=== PATIENT | female | born 1980 | race Caucasian/White ===

== ENCOUNTER → 2016-09-28 | Outpatient (CLI) | payer OTHER ==
[2016-09-28 07:27] LABS: CH 32.4; HCT 40.3 % (34.0-46.0); HDW 2.31; HGB 13.4 gm/dL (11.4-16.0); MCH 32.8 pg (25.0-35.0); MCHC 33.2 g/dL (31.0-37.0); MCV 98.9 fL (80.0-100.0); Mean Platelet Volume 6.9; RBC 4.08 m/uL (3.80-5.40); RDW 13.4 % (11.5-15.5); WBC 6.9 k/uL (3.8-10.6)
[2016-09-28 07:40] LABS: ALT 38 U/L (9-52); AST 25 U/L (14-36); Alkaline Phosphatase 55 U/L (38-126); Anion Gap 7 mmol/L; Blood Urea Nitrogen 9 mg/dL (7-17); Calcium 9.6 mg/dL (8.4-10.2); Carbon Dioxide 27 mmol/L (22-30); Chloride 109 mmol/L (98-107); Cholesterol 247 mg/dL (<200); Glucose 104 mg/dL (74-99); HDL Cholesterol 68 mg/dL (40-60); Non-African American GFR(MDRD) >60 (>60 ml/min/1.73 sqM); Potassium 5.7 mmol/L (3.5-5.1); Sodium 143 mmol/L (137-145); Total Protein 7.4 g/dL (6.3-8.2); Triglycerides 115 mg/dL (<150)
[2016-09-28 12:10] LABS: Hemoglobin A1C 5.3 % (4.2-6.1)
--- NOTE | 2016-09-28 12:51 | NM ---
EXAMINATION TYPE: NM hepatobiliary w EF DATE OF EXAM: 09/28/2016 9:08 AM COMPARISON: Prior exam 07 May 2015, CT scan 06 July 2015 HISTORY: Abdominal pain TECHNIQUE: After the intravenous administration of 5.1 mCi Tc 99m Mebrofenin hepatobiliary scintigrap hy is performed. Immediate images post injection. FINDINGS: There is satisfactory initial accumulation of tracer by the liver. The gallbladder is visualized wit hin 10 minutes. The small bowel activity is noted within 10 minutes. At one hour 8 ounces of oral e nsure plus is given to mimic CCK and gallbladder ejection fraction is calculated at 80 %. Therefore t here is no scintigraphic evidence of cystic or common bile duct obstruction to suggest acute cholecys titis. IMPRESSION: No cystic duct obstruction. Gallbladder ejection fraction 80%.
== END | disposition home or self-care (01) ==
LOC: RADNMMAIN 06:35
PROVIDERS: ATTEND Internal Medicine
DX: R10.11 Right upper quadrant pain (principal); R10.819 Abdominal tenderness, unspecified site; R11.2 Nausea with vomiting, unspecified; Z00.00 Encounter for general adult medical examination without abnormal findings; K21.0 Gastro-esophageal reflux disease with esophagitis; R73.9 Hyperglycemia, unspecified; E78.2 Mixed hyperlipidemia
CPT/HCPCS: 84439; 80061; 80053; 83036; 84443; 85027; 78226; A9537

== ENCOUNTER 2016-10-17 09:26 | Emergency (ER) | payer OTHER ==
[2016-10-17 09:38] VITALS: RESP 18
[2016-10-17] MEDS ORDERED: SODIUM CHLORIDE 0.9% 1,000 ML IV STA ×2 (09:51→09:56)
[2016-10-17] MEDS ORDERED: HYDROmorphone 1 MG/ML 1 ML SYRINGE IVP STA (09:56)
[2016-10-17] MEDS ORDERED: ONDANSETRON 4 MG/2 ML VIAL IVP STA (09:56)
[2016-10-17 10:05] LABS: Basophils % (A) 0 %; CH 32.1; Eosinophils # (A) 0.1 k/uL (0-0.7); Eosinophils % (A) 1 %; HCT 44.4 % (34.0-46.0); HDW 2.15; HGB 14.4 gm/dL (11.4-16.0); Luc # (Auto) 0.14; Luc % (Auto) 1; Lymphocytes # (A) 2.5 k/uL (1.0-4.8); Lymphocytes % (A) 26 %; MCH 31.7 pg (25.0-35.0); MCHC 32.4 g/dL (31.0-37.0); MCV 97.9 fL (80.0-100.0); Mean Platelet Volume 6.7; Monocytes # (A) 0.3 k/uL (0-1.0); Monocytes % (A) 4 %; Neutrophils # (A) 6.5 k/uL (1.3-7.7); Neutrophils % (A) 68 %; RBC 4.53 m/uL (3.80-5.40); RDW 13.2 % (11.5-15.5); WBC 9.7 k/uL (3.8-10.6); WBC (Perox) 9.41
[2016-10-17 10:17] LABS: ALT 28 U/L (9-52); AST 18 U/L (14-36); Alkaline Phosphatase 64 U/L (38-126); Amylase 68 U/L (30-110); Anion Gap 11 mmol/L; Blood Urea Nitrogen 7 mg/dL (7-17); Calcium 9.9 mg/dL (8.4-10.2); Carbon Dioxide 24 mmol/L (22-30); Chloride 108 mmol/L (98-107); Glucose 110 mg/dL (74-99); Non-African American GFR(MDRD) >60 (>60 ml/min/1.73 sqM); Potassium 4.3 mmol/L (3.5-5.1); Sodium 143 mmol/L (137-145); Total Bilirubin 1.1 mg/dL (0.2-1.3)
--- NOTE | 2016-10-17 10:33 | ED ---
General Adult HPI - General Chief complaint: Abdominal Pain Stated complaint: abd pain Time Seen by Provider: 10/17/16 09:48 Source: patient, RN notes reviewed Mode of arrival: ambulatory Limitations: no limitations - History of Present Illness Initial comments: Patient 36-year-old female who presents emergency room today with a chief complaint of right upper quadrant pain. She does admit to a history of dysfunctional gallbladder. She states that she is scheduled to follow-up with the surgeon but is not until November. She states her last today she's been having increased pain to the right upper quadrant. She states is worse after she ate a tuna sandwich. She states now anything that she eats or drinks seems to increased pain. Patient currently rates pain 8/10 located in the right upper quadrant currently describes it as sharp. She does admit to symptoms of nausea vomiting. Denies any other complaints or associated symptoms at this time. Patient denies any recent fever, chills, shortness of breath, chest pain, numbness or tingling, dysuria or hematuria, constipation or diarrhea, headaches or visual changes, or any other complaints. - Related Data Allergies Allergy/AdvReac Type Severity Reaction Status Date / Time No Known Allergies Allergy Verified 10/17/16 09:37 Review of Systems ROS Statement: Those systems with pertinent positive or pertinent negative responses have been documented in the HPI. ROS Other: All systems not noted in ROS Statement are negative. Past Medical History Past Medical History: No Reported History History of Any Multi-Drug Resistant Organisms: None Reported Past Surgical History: Orthopedic Surgery Additional Past Surgical History / Comment(s): tib fib orif Past Psychological History: No Psychological Hx Reported Smoking Status: Never smoker Past Alcohol Use History: None Reported Past Drug Use History: None Reported General Exam - General Exam Comments Initial Comments: General: The patient is awake and alert, in no distress, and does not appear acutely ill. Eye: Pupils are equal, round and reactive to light, extra-ocular movements are intact. No nystagmus. There is normal conjunctiva bilaterally. No signs of icterus. Ears, nose, mouth and throat: There are moist mucous membranes and no oral lesions. Neck: The neck is supple, there is no tenderness or JVD. Cardiovascular: There is a regular rate and rhythm. No murmur, rub or gallop is appreciated. Respiratory: Lungs are clear to auscultation, respirations are non-labored, breath sounds are equal. No wheezes, stridor, rales, or rhonchi. Gastrointestinal: Normal appearance abdomen. Normal bowel sounds. Abdomen soft on palpation. Patient does have tenderness in the right upper quadrant. Mild tenderness epigastric. No rebound tenderness. No guarding. No CVA tenderness. Musculoskeletal: Normal ROM, no tenderness. Strength 5/5. Sensation intact. Pulses equal bilaterally 2+. Neurological: A&O x 3. CN II-XII intact, There are no obvious motor or sensory deficits. Coordination appears grossly intact. Speech is normal. Skin: Skin is warm and dry and no rashes or lesions are noted. Psychiatric: Cooperative, appropriate mood & affect, normal judgment. Limitations: no limitations Course Vital Signs 10/17/16 09:34 Temperature 97.0 F L Pulse Rate 95 Respiratory 18 Rate Blood Pressure 141/74 O2 Sat by Pulse 100 Oximetry Medical Decision Making - Medical Decision Making Patient's labs been reviewed are unremarkable. Patient's had HIDA scan most recently no gallstones. Patient does admit that she's feeling better here in the emergency room after pain medication. Case was discussed in detail with attending physician Dr. Singh. At this time patient will be discharged home she is advised follow-up with Dr. hernandez office tomorrow. Advised return for any other concerns. - Lab Data Result diagrams: 10/17/16 09:50 10/17/16 09:50 Lab Results 10/17/16 10/17/16 10/17/16 Range/Units 09:50 09:50 11:00 WBC 9.7 (3.8-10.6) k/uL RBC 4.53 (3.80-5.40) m/uL Hgb 14.4 (11.4-16.0) gm/dL Hct 44.4 (34.0-46.0) % MCV 97.9 (80.0-100.0) fL MCH 31.7 (25.0-35.0) pg MCHC 32.4 (31.0-37.0) g/dL RDW 13.2 (11.5-15.5) % Plt Count 387 (150-450) k/uL Neutrophils % 68 % Lymphocytes % 26 % Monocytes % 4 % Eosinophils % 1 % Basophils % 0 % Neutrophils # 6.5 (1.3-7.7) k/uL Lymphocytes # 2.5 (1.0-4.8) k/uL Monocytes # 0.3 (0-1.0) k/uL Eosinophils # 0.1 (0-0.7) k/uL Basophils # 0.0 (0-0.2) k/uL Sodium 143 (137-145) mmol/L Potassium 4.3 (3.5-5.1) mmol/L Chloride 108 H (98-107) mmol/L Carbon Dioxide 24 (22-30) mmol/L Anion Gap 11 mmol/L BUN 7 (7-17) mg/dL Creatinine 0.68 (0.52-1.04) mg/dL Est GFR (MDRD) Af Amer >60 (>60 ml/min/1.73 sqM) Est GFR (MDRD) Non-Af >60 (>60 ml/min/1.73 sqM) Glucose 110 H (74-99) mg/dL Calcium 9.9 (8.4-10.2) mg/dL Total Bilirubin 1.1 (0.2-1.3) mg/dL AST 18 (14-36) U/L ALT 28 (9-52) U/L Alkaline Phosphatase 64 (38-126) U/L Total Protein 8.0 (6.3-8.2) g/dL Albumin 4.8 (3.5-5.0) g/dL Amylase 68 (30-110) U/L Lipase 147 (23-300) U/L Urine Color Yellow Urine Appearance Cloudy H (Clear) Urine pH 7.0 (5.0-8.0) Ur Specific Carbon 1.017 (1.001-1.035) Urine Protein Trace H (Negative) Urine Glucose (UA) Negative (Negative) Urine Ketones Negative (Negative) Urine Blood Negative (Negative) Urine Nitrite Negative (Negative) Urine Bilirubin Negative (Negative) Urine Urobilinogen <2.0 (<2.0) mg/dL Ur Leukocyte Esterase Trace H (Negative) Urine WBC 1 (0-5) /hpf Ur Squamous Epith Cells 25 H (0-4) /hpf Urine Mucus Moderate H (None) /hpf Urine HCG, Qual (Not Detectd) 10/17/16 Range/Units 11:00 WBC (3.8-10.6) k/uL RBC (3.80-5.40) m/uL Hgb (11.4-16.0) gm/dL Hct (34.0-46.0) % MCV (80.0-100.0) fL MCH (25.0-35.0) pg MCHC (31.0-37.0) g/dL RDW (11.5-15.5) % Plt Count (150-450) k/uL Neutrophils % % Lymphocytes % % Monocytes % % Eosinophils % % Basophils % % Neutrophils # (1.3-7.7) k/uL Lymphocytes # (1.0-4.8) k/uL Monocytes # (0-1.0) k/uL Eosinophils # (0-0.7) k/uL Basophils # (0-0.2) k/uL Sodium (137-145) mmol/L Potassium (3.5-5.1) mmol/L Chloride (98-107) mmol/L Carbon Dioxide (22-30) mmol/L Anion Gap mmol/L BUN (7-17) mg/dL Creatinine (0.52-1.04) mg/dL Est GFR (MDRD) Af Amer (>60 ml/min/1.73 sqM) Est GFR (MDRD) Non-Af (>60 ml/min/1.73 sqM) Glucose (74-99) mg/dL Calcium (8.4-10.2) mg/dL Total Bilirubin (0.2-1.3) mg/dL AST (14-36) U/L ALT (9-52) U/L Alkaline Phosphatase (38-126) U/L Total Protein (6.3-8.2) g/dL Albumin (3.5-5.0) g/dL Amylase (30-110) U/L Lipase (23-300) U/L Urine Color Urine Appearance (Clear) Urine pH (5.0-8.0) Ur Specific Carbon (1.001-1.035) Urine Protein (Negative) Urine Glucose (UA) (Negative) Urine Ketones (Negative) Urine Blood (Negative) Urine Nitrite (Negative) Urine Bilirubin (Negative) Urine Urobilinogen (<2.0) mg/dL Ur Leukocyte Esterase (Negative) Urine WBC (0-5) /hpf Ur Squamous Epith Cells (0-4) /hpf Urine Mucus (None) /hpf Urine HCG, Qual Not Detected (Not Detectd) Disposition Clinical Impression: Abdominal pain Disposition: HOME SELF-CARE Condition: Good Instructions: Abdominal Pain (ED) Additional Instructions: Please follow-up with surgeons office tomorrow as discussed. Please return to emergency room if any symptoms increase or worsen or for any other concerns. Referrals: Daljit Erwin MD [Primary Care Provider] - 1-2 days Tim Serrano MD [Medical Doctor] - 1-2 days Time of Disposition: 11:30
[2016-10-17 11:16] LABS: Appearance,Urine Cloudy (Clear); Bilirubin,Urine Negative (Negative); Glucose,Urine (UA) Negative (Negative); Ketones,Urine Negative (Negative); Leukocyte Esterase,Urine Trace (Negative); Mucus,Urine Moderate /hpf; Nitrite,Urine Negative (Negative); Particle Count 19417; Protein,Urine Trace (Negative); Specific Gravity,Urine 1.017 (1.001-1.035); Squamous Epithelial Cell,Urine 25 /hpf (0-4); UA Billing (MACRO vs. MICRO) MICRO; Urobilinogen,Urine <2.0 mg/dL (<2.0); WBC,Urine 1 /hpf (0-5)
[2016-10-17 11:58] VITALS: BP 120/73; PULSE 89; TEMP 97.3
== END 2016-10-17 11:58 | disposition home or self-care (01) ==
LOC: EC 09:26
DX: R10.11 Right upper quadrant pain (principal); R11.2 Nausea with vomiting, unspecified
CPT/HCPCS: 36415; 80053; 82150; 83690; 85025; 81001; 81025; 99284; 96374; 96375; 96361 ×2; J2405; J1170

== ENCOUNTER 2018-02-05 06:15 | Inpatient (IN) | payer OTHER ==
[2018-02-05] MEDS ORDERED: METHYLERGONOVINE 0.2 MG/ML 1 ML AMP IM PRN (06:46)
[2018-02-05] MEDS ORDERED: LIDOCAINE 0.5% (PF) 5 MG/ML (50 ML SDV) SQ PRN (06:46)
[2018-02-05] MEDS ORDERED: TERBUTALINE 1 MG/ML VIAL SQ PRN (06:46)
[2018-02-05] MEDS ORDERED: OXYTOCIN 10 UNIT/ML 1 ML VIAL IM PRN (06:46)
[2018-02-05] MEDS ORDERED: CARBOPROST TROMETHAMINE 250 MCG/ML 1 ML AMP IM PRN (06:46)
[2018-02-05] MEDS: LACTATED RINGERS 1,000 ML IV SCH ×2 (06:50→23:59)
[2018-02-05 06:56] LABS: Basophils % (A) 0 %; Eosinophils # (A) 0.1 k/uL (0-0.7); Eosinophils % (A) 1 %; HCT 33.9 % (34.0-46.0); HGB 10.6 gm/dL (11.4-16.0); Lymphocytes # (A) 2.4 k/uL (1.0-4.8); Lymphocytes % (A) 18 %; MCH 30.5 pg (25.0-35.0); MCHC 31.3 g/dL (31.0-37.0); MCV 97.4 fL (80.0-100.0); Mean Platelet Volume 7.2; Monocytes # (A) 0.6 k/uL (0-1.0); Monocytes % (A) 5 %; Neutrophils # (A) 10.4 k/uL (1.3-7.7); Neutrophils % (A) 75 %; Platelet Count 436 k/uL (150-450); RBC 3.48 m/uL (3.80-5.40); RDW 14.9 % (11.5-15.5); WBC 13.8 k/uL (3.8-10.6)
[2018-02-05 07:00] VITALS: BMI 29.5
[2018-02-05] MEDS ORDERED: OXYTOCIN 20 UNITS/1000 ML NS 1,000 ML IV SCH ×2 (07:00→22:15)
--- NOTE | 2018-02-05 08:03 | P.HPOB ---
History of Present Illness H&P Date: 02/05/18 Chief Complaint: Induction of Labor 37-year-old presents at 39 weeks and 3 days for induction of labor. Her cervix is 1 cm dilated, 70% effaced, and -2 station. She is candida irregularly. heart tones 130-135 with moderate variability and reactive. Review of Systems All systems: negative Constitutional: Denies chills, Denies fever Eyes: denies blurred vision, denies pain Ears, nose, mouth and throat: Denies headache, Denies sore throat Cardiovascular: Denies chest pain, Denies shortness of breath Respiratory: Denies cough Gastrointestinal: Denies abdominal pain, Denies diarrhea, Denies nausea, Denies vomiting Genitourinary: Denies dysuria, Denies hematuria Musculoskeletal: Denies myalgias Integumentary: Denies pruritus, Denies rash Neurological: Denies numbness, Denies weakness Psychiatric: Denies anxiety, Denies depression Endocrine: Denies fatigue, Denies weight change Past Medical History Past Medical History: No Reported History Additional Past Medical History / Comment(s): Obstetric history: First was a vaginal delivery this is her second and she's had care with me since 14 weeks gestation. A+, abs negative, rubella immune, RPR nonreactive, hepatitis B negative, HIV nonreactive, toxoplasmosis negative, normal anatomy ultrasound, male, normal maternity 21 testing, normal 1 hour glucose tolerance test. NSTs have been reactive, she was recommended to have a echo but did not go for that appointment. GBS negative. History of Any Multi-Drug Resistant Organisms: None Reported Past Surgical History: Orthopedic Surgery Additional Past Surgical History / Comment(s): tib fib orif Past Anesthesia/Blood Transfusion Reactions: No Reported Reaction Past Psychological History: No Psychological Hx Reported Smoking Status: Never smoker Past Alcohol Use History: None Reported Past Drug Use History: None Reported - Past Family History Father Family Medical History: Coronary Artery Disease (CAD), Diabetes Mellitus, Hypertension, Renal Disease Medications and Allergies Home Medications Medication Instructions Recorded Confirmed Type Acetaminophen [Tylenol] 325 mg PO Q4-6H 01/22/18 01/22/18 History Aspirin [Children's Aspirin] 81 mg PO DAILY 01/22/18 01/22/18 History Doxylamine Succinate [Unisom] 25 mg PO HS 01/22/18 01/22/18 History Pnv,Calcium 72/Iron/Folic Acid 1 tab PO DAILY 01/22/18 01/22/18 History [ Plus Tablet] diphenhydrAMINE [Benadryl] 25 mg PO Q8HR PRN 01/22/18 01/22/18 History Allergies Allergy/AdvReac Type Severity Reaction Status Date / Time ibuprofen AdvReac Unknown Verified 02/05/18 06:45 Exam Osteopathic Statement: *. No significant issues noted on an osteopathic structural exam other than those noted in the History and Physical/Consult. Vital Signs Temp Pulse Resp BP Pulse Ox 02/05/18 06:43 96.9 F L 82 16 112/73 99 Intake and Output 02/04/18 02/05/18 02/05/18 22:59 06:59 14:59 Other: Weight 70.76 kg Heart: Regular rate and rhythm Lungs: Clear to auscultation bilaterally Abdomen: Soft, nontender Extremities: Negative Homans sign Results Result Diagrams: 02/05/18 06:40 Abnormal Lab Results - Last 24 Hours (Table) 02/05/18 Range/Units 06:40 WBC 13.8 H (3.8-10.6) k/uL RBC 3.48 L (3.80-5.40) m/uL Hgb 10.6 L (11.4-16.0) gm/dL Hct 33.9 L (34.0-46.0) % Neutrophils # 10.4 H (1.3-7.7) k/uL Assessment and Plan (1) Normal labor Current Visit: Yes Status: Acute Code(s): O80 - ENCOUNTER FOR FULL-TERM UNCOMPLICATED DELIVERY; Z37.9 - OUTCOME OF DELIVERY, UNSPECIFIED SNOMED Code(s ): 55696793 Plan: 1. Induction of labor with amniotomy and Pitocin 2. Anticipate normal vaginal delivery
[2018-02-05] MEDS ORDERED: ROPIVACAINE 100 MG, fentaNYL (PF) 200 MCG in SODIUM CHLORIDE 0.9% 76 ML EPIDURAL ONE (12:55)
[2018-02-05] MEDS ORDERED: ceFAZolin IN SWFI 2 GM/20 ML SYRINGE IVP STA (20:25)
[2018-02-05] MEDS ORDERED: CITRIC ACID-SODIUM CITRATE 15 ML CUP PO ONE (20:26)
[2018-02-05] MEDS ORDERED: MORPHINE SULFATE (PF) 0.3 MG/0.3 ML SYR ONE (20:42)
[2018-02-05] MEDS ORDERED: ACETAMINOPHEN TAB 325 MG TAB PO PRN (22:08)
[2018-02-05] MEDS ORDERED: LANOLIN CREAM 5 GM TUBE TOPICAL PRN (22:08)
[2018-02-05] MEDS ORDERED: IBUPROFEN 600 MG TAB PO PRN (22:08)
[2018-02-05] MEDS ORDERED: ZOLPIDEM 5 MG TAB PO PRN (22:08)
[2018-02-05] MEDS ORDERED: METOCLOPRAMIDE 5 MG/ML 2 ML VIAL IVP PRN (22:08)
[2018-02-05] MEDS ORDERED: diphenhydrAMINE 50 MG/ML 1 ML VIAL IVP PRN ×2 (22:08)
[2018-02-05] MEDS ORDERED: ONDANSETRON 4 MG/2 ML VIAL IVP PRN (22:08)
[2018-02-05] MEDS ORDERED: diphenhydrAMINE 50 MG CAP PO PRN (22:08)
[2018-02-05] MEDS ORDERED: NALOXONE 0.4 MG/ML 1 ML VIAL IV PRN (22:08)
[2018-02-05] MEDS ORDERED: diphenhydrAMINE 25 MG CAP PO PRN (22:08)
--- NOTE | 2018-02-05 22:27 | P.OP ---
Date of Procedure: 02/05/18 Preoperative Diagnosis: 1. at 39 weeks and 3 days 2. Arrest of descent 3. tachycardia Postoperative Diagnosis: 1. at 39 weeks and 3 days 2. Arrest of descent 3. tachycardia 4. head in the LOT position Procedure(s) Performed: Primary low transverse Anesthesia: spinal Surgeon: Cynthia Serrano Volunteer Services Assistant #1: Ravindra Mccurdy Estimated Blood Loss (ml): 500 IV fluids (ml): 1,500 Urine output (ml): 50 Pathology: other (Placenta) Condition: stable Disposition: floor Indications for Procedure: 37-year-old presented at 39 weeks and 3 days for induction of labor. Her cervix was 1 cm dilated, 70% effaced, -2 station. Amniotomy was performed at 7: 46 AM clear fluid noted. Pitocin was started. When she was candida every couple minutes and her cervix was making change she did get an epidural. She made slow cervical change throughout the day and did have some decelerations in the heart rate that did near contractions good return to baseline throughout the day. Her Pitocin was shut off but she was still making some cervical change made it to 8 cm dilated and was uncomfortable did get a bolus on her epidural. She started pushing and pushed for a few hours but didn't make good descent after the first hour. heart tones started to go up into the range of 175-180 with moderate variability. She stopped pushing effectively, informed consent was obtained and section was called. Operative Findings: Viable male infant, Apgars 7, 8, weight 7 lbs. 7 oz. Meconium fluid was seen upon incision of the uterus. Description of Procedure: Patient was taken to the operating room where spinal anesthesia was found be adequate. She was prepped and draped in normal sterile fashion in dorsal supine position with a leftward tilt. Pfannenstiel skin incision was made the scalpel and carried through to the underlying layer of fascia with the scalpel. Fascia was incised in midline and carried bilaterally with the Carmona scissors. The superior aspect of the fascial incision was grasped with Danilo clamps elevated and the underlying rectus muscles dissected off with the Carmona's. Attention was then turned to inferior aspect of same incision which in a similar fashion was grasped tented up and the underlying rectus muscles dissected off with the Carmona's. The rectus muscles were the midline and the peritoneum was identified tented up and entered sharply with the scalpel. The incision was extended superiorly and inferiorly with good visualization of the bladder. The bladder blade was inserted and the vesicouterine peritoneum was incised the Metzenbaums then carried bilaterally and bladder flap created digitally. A low transverse incision was then made on the uterus with the scalpel. This was carried bilaterally and digital manner. Infant's head delivered atraumatically, nose and mouth bulb suctioned, cord clamped and cut, infant handed off to waiting nurses, and the waiting insurance office manager. Apgars 7,8, weight 7 lbs. 7 oz. Placenta delivered manually, intact with three-vessel cord. The uterus is exteriorized and cleared of all clots and debris. At this time the patient became very uncomfortable. The uterine incision was closed with 0 Vicryl in a running locked fashion. Due to the patient's discomfort, anesthesia asked that I place some local anesthetic and the fascial layer. I infiltrated 10 mL of 1% lidocaine in the right aspect of the fascial layer. I then placed a Second layer of the same 0 Vicryl sutures used in imbricating fashion on the uterus to obtain excellent hemostasis. Both ovaries and tubes appeared normal. The uterus was placed back into the abdomen. The patient was very uncomfortable at this time. The fascia was reapproximated using 0 Vicryl in a running fashion. The subcutaneous tissues closed with 3-0 Vicryl running fashion. The skin was closed columba. Patient tolerated the procedure well, sponge and instrument counts were correct times 2 and she was taken to the recovery room in stable condition.
[2018-02-05] MEDS: HYDROmorphone PCA 5 MG/25 ML SYRINGE IV PRN (23:34)
[2018-02-06] MEDS: HYDROmorphone PCA 5 MG/25 ML SYRINGE IV PRN (02:52)
[2018-02-06] MEDS: KETOROLAC 30 MG/ML 1 ML VIAL IVP PRN ×3 (03:52→22:06)
[2018-02-06] MEDS: LACTATED RINGERS 1,000 ML IV SCH ×2 (06:39)
[2018-02-06 07:17] LABS: Basophils % (A) 0 %; Eosinophils # (A) 0.1 k/uL (0-0.7); Eosinophils % (A) 0 %; HCT 29.1 % (34.0-46.0); HGB 9.4 gm/dL (11.4-16.0); Lymphocytes # (A) 1.7 k/uL (1.0-4.8); Lymphocytes % (A) 10 %; MCH 31.2 pg (25.0-35.0); MCHC 32.5 g/dL (31.0-37.0); Mean Platelet Volume 7.4; Monocytes # (A) 0.8 k/uL (0-1.0); Monocytes % (A) 5 %; Neutrophils # (A) 14.8 k/uL (1.3-7.7); Neutrophils % (A) 84 %; Platelet Count 367 k/uL (150-450); RBC 3.03 m/uL (3.80-5.40); RDW 14.8 % (11.5-15.5); WBC 17.6 k/uL (3.8-10.6)
[2018-02-06] MEDS: HYDROcodone/APAP 7.5-325MG 1 EACH TAB PO PRN ×3 (08:39→20:29)
[2018-02-06] MEDS: SENNOSIDES-DOCUSATE SODIUM 1 EACH TAB PO SCH ×2 (08:39→19:50)
[2018-02-06] MEDS: SIMETHICONE 80 MG CHEWABLE PO PRN ×3 (12:32→20:37)
[2018-02-07] MEDS: HYDROcodone/APAP 7.5-325MG 1 EACH TAB PO PRN ×2 (02:35→08:46)
[2018-02-07 08:29] VITALS: BP 132/74; PULSE 76; RESP 16; TEMP 98
== END 2018-02-07 09:57 | disposition home or self-care (01) | DRG 766 ==
LOC: 4FBP 06:15
PROVIDERS: ADMIT Obstetrics & Gynecology; ATTEND Obstetrics & Gynecology
PROC: 3E033VJ Introduction of Other Hormone into Peripheral Vein, Percutaneous Approach (ICD-10-PCS; 2018-02-05)
PROC: 10907ZC Drainage of Amniotic Fluid, Therapeutic from Products of Conception, Via Natural or Artificial Opening (ICD-10-PCS; 2018-02-05)
PROC: 00HU33Z Insertion of Infusion Device into Spinal Canal, Percutaneous Approach (ICD-10-PCS; 2018-02-05)
PROC: 3E0R3BZ Introduction of Anesthetic Agent into Spinal Canal, Percutaneous Approach (ICD-10-PCS; 2018-02-05)
PROC: 10D00Z1 Extraction of Products of Conception, Low, Open Approach (ICD-10-PCS; principal; 2018-02-05 21:00)
DX: O77.0 Labor and delivery complicated by meconium in amniotic fluid (principal); Z37.0 Single live birth; O62.1 Secondary uterine inertia; O76 Abnormality in fetal heart rate and rhythm complicating labor and delivery; Z3A.39 39 weeks gestation of pregnancy; Z79.82 Long term (current) use of aspirin; Z79.899 Other long term (current) drug therapy; Z88.6 Allergy status to analgesic agent; Z82.49 Family history of ischemic heart disease and other diseases of the circulatory system; Z83.3 Family history of diabetes mellitus; Z84.1 Family history of disorders of kidney and ureter
CPT/HCPCS: 85025; 86850; 86900; 86901

== ENCOUNTER → 2018-04-11 | Outpatient (CLI) | payer OTHER ==
[2018-04-11 07:38] LABS: HCT 43.3 % (34.0-46.0); MCHC 32.3 g/dL (31.0-37.0); MCV 95.8 fL (80.0-100.0); Mean Platelet Volume 6.7; Platelet Count 412 k/uL (150-450); RBC 4.52 m/uL (3.80-5.40); RDW 14.5 % (11.5-15.5); WBC 7.9 k/uL (3.8-10.6)
[2018-04-11 12:52] LABS: Albumin 4.5 g/dL (3.80-4.90); Albumin/Globulin Ratio 2.05 (1.20-2.10); Anion Gap 7.8 mmol/L (4.00-12.00); Calcium 9.7 mg/dL (8.7-10.3); Carbon Dioxide 25.2 mmol/L (21.6-31.8); Globulin 2.2 g/dL (2.1-3.7); LDL Cholesterol,Calculated 147.4 mg/dL (0.0-131.0); Potassium 5.1 mmol/L (3.5-5.5); Total Bilirubin 0.4 mg/dL (0.3-1.2); Total Protein 6.7 g/dL (6.2-8.2); VLDL Calculation 50.6 mg/dL (5.00-40.00)
[2018-04-11 13:00] LABS: T4, Free (Free Thyroxine) 1.2 ng/dL (0.80-1.80)
[2018-04-11 14:00] LABS: Hemoglobin A1C 5.9 % (4.0-6.0)
== END | disposition home or self-care (01) ==
LOC: LABWHC1 06:45
PROVIDERS: ATTEND Internal Medicine
DX: Z00.00 Encounter for general adult medical examination without abnormal findings (principal); K21.0 Gastro-esophageal reflux disease with esophagitis; M54.5 Low back pain; E11.9 Type 2 diabetes mellitus without complications; R10.84 Generalized abdominal pain
CPT/HCPCS: 36415; 80053; 80061; 83036; 84439; 84443; 85027

== ENCOUNTER → 2018-06-12 | Outpatient (CLI) | payer OTHER ==
--- NOTE | 2018-06-12 12:11 | US ---
EXAMINATION TYPE: US abdomen complete DATE OF EXAM: 06/12/2018 COMPARISON: CT 2016 CLINICAL HISTORY: R10.84 abdominal pain, R10.11Right upper q, R10.13. Intermittent abdomen pain, elev ated liver enzymes, history of cholecystectomy. EXAM MEASUREMENTS: Liver Length: 15.3 cm Gallbladder Wall: surgically absent CBD: 0.3 cm Spleen: 10.0 cm Right Kidney: 9.6 x 4.6 x 4.6 cm Left Kidney: 10.6 x 5.6 x 4.3 cm Pancreas: visualized portions wnl, limited by overlying midline bowel gas Liver: wnl Gallbladder: surgically absent Evidence for sonographic Akins's sign: yes CBD: visualized portions wnl, limited by overlying bowel gas Spleen: visualized portions wnl, limited by overlying bowel gas Right Kidney: wnl Left Kidney: wnl Upper IVC: wnl Abd Aorta: visualized portions wnl, limited by overlying midline bowel gas The visualized liver is homogenous. The intrahepatic portion of the IVC and visualized abdominal aor ta are within normal limits. Gallbladder is noted surgically absent. Common bile duct is unremarkabl e. The visualized central portions of the pancreas are homogenous. Significant portion of pancreatic head and tail is secured by overlying bowel gas per technologist. The spleen is unremarkable. Kidn eys are symmetric and free of hydronephrosis. No renal lesions are seen. IMPRESSION: Suboptimal study without suspicious focal intrahepatic mass or intrahepatic ductal dilata tion seen. Postcholecystectomy change noted. No suspicious acute findings seen to account for patient 's symptoms of right upper quadrant pain.
== END | disposition home or self-care (01) ==
LOC: RADUSWWP 08:22
PROVIDERS: ATTEND Internal Medicine
DX: R10.13 Epigastric pain (principal); R10.84 Generalized abdominal pain; Z90.49 Acquired absence of other specified parts of digestive tract
CPT/HCPCS: 76700

== ENCOUNTER → 2018-09-10 | Outpatient (CLI) | payer OTHER ==
--- NOTE | 2018-09-10 10:41 | XR ---
Thoracic spine HISTORY: Back pain 3 views of the thoracic spine Thoracic vertebral bodies show preserved height and alignment, bone mineralization. There is multilev el spondylosis. Disc spaces are maintained. Gentle spinal curvature is noted. IMPRESSION: Mild thoracic spondylosis.
--- NOTE | 2018-09-10 10:43 | XR ---
Lumbosacral spine HISTORY: Back pain 5 views of the lumbosacral spine There is no evident spondylolysis or spondylolisthesis. Multilevel spondylosis is present. Disc space s are maintained with some possible mild disc height loss L5-S1. Sclerosis present at the lower poste rior elements of the lumbar spine, lumbosacral junction. Surgical clips are noted in the right upper quadrant. IMPRESSION: Mild degenerative disc disease. Probable facet arthropathy.
[2018-09-10 18:24] LABS: ALT 23 U/L (8-44); AST 22 U/L (13-35); Alkaline Phosphatase 75 U/L (41-126)
== END | disposition home or self-care (01) ==
LOC: LABWHC1 08:19
PROVIDERS: ATTEND Internal Medicine
DX: M54.5 Low back pain (principal); M47.814 Spondylosis without myelopathy or radiculopathy, thoracic region; M51.36 Other intervertebral disc degeneration, lumbar region; M19.90 Unspecified osteoarthritis, unspecified site; R94.5 Abnormal results of liver function studies
CPT/HCPCS: 36415; 72072; 72110; 84075; 84450; 84460

== ENCOUNTER → 2018-12-22 | Outpatient (CLI) | payer OTHER ==
--- NOTE | 2018-12-23 00:20 | MR ---
EXAMINATION TYPE: MR brain wo/w con DATE OF EXAM: 12/22/2018 COMPARISON: CT brain November 14, 2018 HISTORY: Seizure disorder, recent syncopal episode. TECHNIQUE: Multiplanar, multisequence images of the brain and brainstem is performed without and with IV contras t, utilizing 7 mL intravenous Gadavist . FINDINGS: Diffusion weighted images demonstrate no evidence of a recent infarct or other diffusion ab normality. There is no extra-axial fluid collection or significant white matter signal abnormality. The ventricular system and cisternal spaces are normal in size and appearance. The brain volume is age appropriate. T2 coronal weighted images show hippocampal gyral to appear symmetric and felt withi n normal limits. Midline structures demonstrate normal morphology. The craniocervical junction appears within normal limits. Post contrast images demonstrate no abnormal enhancement. The dural venous sinuses appear pa tent. The visualized sinuses are clear and the globes are intact. IMPRESSION: Unremarkable study.
--- NOTE | 2018-12-23 00:24 | MR ---
EXAMINATION TYPE: MR thoracic spine wo con DATE OF EXAM: 12/22/2018 COMPARISON: Thoracic spine x-ray September 10, 2018 HISTORY: back pain per order. DJD and middle back pain in spine with numbness and tingling in toes an d fingers for 4 years per patient. TECHNIQUE: Multiplanar, multisequence imaging of thoracic spine is performed without contrast FINDINGS: Spinal cord shows normal course, caliber, and signal as it courses the thoracic spine. Ashli tebral body heights and alignment are satisfactory. Disc space heights are fairly well-maintained. Ti ny posterior disc herniations minimally effaces the anterior thecal sac T6-T7 through the T8-T9 level as well as slightly larger disc herniations are seen T10-T11 through the T12-L1 levels on sagittal i mages. Posterior disc herniations also noted C3-C4 through the C5-C6 levels on sagittal T2, sequences . Small hemangioma noted posterior to T8 level sagittal image 4. No significant spurring is present. Review of the axial images shows no additional significant spinal canal stenosis or neural foraminal narrowing at any thoracic level. No suspicious incidental finding in the visualized thorax over uppe r abdomen. IMPRESSION: Multilevel small posterior disc herniations minimally effacing the anterior thecal sac in the mid to lower thoracic spine as detailed above.
== END | disposition home or self-care (01) ==
LOC: RADMRIMAIN 12:14
PROVIDERS: ATTEND Psychiatry & Neurology Neurology
DX: M51.24 Other intervertebral disc displacement, thoracic region (principal); G40.909 Epilepsy, unspecified, not intractable, without status epilepticus
CPT/HCPCS: 70553; 72146; A9585

== ENCOUNTER 2019-04-28 07:06 | Emergency (ER) | payer OTHER ==
[2019-04-28 07:17] VITALS: RESP 18; TEMP 97.8
[2019-04-28] MEDS ORDERED: SODIUM CHLORIDE 0.9% 1,000 ML IV STA ×2 (07:23)
[2019-04-28] MEDS ORDERED: ONDANSETRON 4 MG/2 ML VIAL IVP STA (07:23)
--- NOTE | 2019-04-28 07:27 | ED ---
Nausea/Vomiting/Diarrhea HPI - General Chief complaint: Nausea/Vomiting/Diarrhea Stated complaint: Nausea/vomiting Time Seen by Provider: 04/28/19 07:20 Source: patient Mode of arrival: ambulatory Limitations: no limitations - History of Present Illness Initial comments: This a 38-year-old female states her menstrual period last day or so who states he started developing nausea vomiting around midnight. She had multiple episodes of vomiting at least 6 or 7 with some looser soft stool. Mild epigastric discomfort no fevers chills nausea vomiting she has had some rhinorrhea. No other modifying factors no dysuria though she states her urine output has been markedly diminished likely secondary to vomiting. MD complaint: nausea, vomiting - Related Data Home Medications Medication Instructions Recorded Confirmed Kratom 1 - 2 tab PO HS 11/14/18 11/14/18 traMADol HCL [Ultram] 50 - 100 mg PO DAILY 11/14/18 11/14/18 Previous Rx's Medication Instructions Recorded Ondansetron Odt [Zofran Odt] 4 mg PO Q8HR PRN #12 tab 04/28/19 Allergies Allergy/AdvReac Type Severity Reaction Status Date / Time ibuprofen AdvReac Unknown Verified 04/28/19 07:12 Review of Systems ROS Statement: Those systems with pertinent positive or pertinent negative responses have been documented in the HPI. ROS Other: All systems not noted in ROS Statement are negative. Past Medical History Past Medical History: GERD/Reflux, Hyperlipidemia, Osteoarthritis (OA) Additional Past Medical History / Comment(s): heart murmur Obstetric history: First was a vaginal delivery this is her second and she's had care with me since 14 weeks gestation. A+, abs negative, rubella immune, RPR nonreactive, hepatitis B negative, HIV nonreactive, toxoplasmosis negative, normal anatomy ultrasound, male, normal maternity 21 testing, normal 1 hour glucose tolerance test. NSTs have been reactive, she was recommended to have a echo but did not go for that appointment. GBS negative. History of Any Multi-Drug Resistant Organisms: None Reported Past Surgical History: Cholecystectomy, Orthopedic Surgery Additional Past Surgical History / Comment(s): tib fib orif Past Anesthesia/Blood Transfusion Reactions: No Reported Reaction Past Psychological History: No Psychological Hx Reported Smoking Status: Never smoker Past Alcohol Use History: None Reported Past Drug Use History: None Reported - Past Family History Father Family Medical History: Coronary Artery Disease (CAD), Diabetes Mellitus, Hypertension, Renal Disease General Exam - General Exam Comments Initial Comments: This is a well-developed well-nourished awake alert oriented 3 female she is actively vomiting Limitations: no limitations General appearance: alert, anxious, in distress Head exam: Present: atraumatic, normocephalic, normal inspection Eye exam: Present: normal appearance, PERRL, EOMI. Absent: scleral icterus, conjunctival injection, periorbital swelling ENT exam: Present: mucous membranes dry Neck exam: Present: normal inspection. Absent: tenderness, meningismus, lymphadenopathy Respiratory exam: Present: normal lung sounds bilaterally. Absent: respiratory distress, wheezes, rales, rhonchi, stridor Cardiovascular Exam: Present: regular rate, normal rhythm, normal heart sounds. Absent: systolic murmur, diastolic murmur, rubs, gallop, clicks GI/Abdominal exam: Present: soft, normal bowel sounds. Absent: distended, tenderness, guarding, rebound, rigid Extremities exam: Present: normal inspection, full ROM, normal capillary refill. Absent: tenderness, pedal edema, joint swelling, calf tenderness Back exam: Present: normal inspection Neurological exam: Present: alert, oriented X3, CN II-XII intact Psychiatric exam: Present: normal affect, normal mood Skin exam: Present: warm, dry, intact, normal color. Absent: rash Course Vital Signs 04/28/19 04/28/19 07:12 10:58 Temperature 97.8 F Pulse Rate 84 86 Respiratory 18 18 Rate Blood Pressure 138/83 108/78 O2 Sat by Pulse 97 97 Oximetry - Reevaluation(s) Reevaluation #1: 04/28/19 12:10 Age did not get relief with the medication was given. Multiple different attempts were tried different medications. Medical Decision Making - Medical Decision Making I did discuss the findings with the patient after multiple attempts a different medication she would prefer to go home and try to get some sleep. She'll be given some IV medication prior to discharge she'll be placed on Zofran ODT. She is to follow-up with her doctor and return if any problems HE was invited back at any time. - Lab Data Result diagrams: 04/28/19 07:48 04/28/19 07:48 Lab Results 12/08/19 12/08/19 Range/Units 07:48 07:48 WBC 13.4 H (3.8-10.6) k/uL RBC 4.28 (3.80-5.40) m/uL Hgb 13.6 (11.4-16.0) gm/dL Hct 41.6 (34.0-46.0) % MCV 97.0 (80.0-100.0) fL MCH 31.8 (25.0-35.0) pg MCHC 32.7 (31.0-37.0) g/dL RDW 13.8 (11.5-15.5) % Plt Count 476 H (150-450) k/uL Neutrophils % 85 % Lymphocytes % 11 % Monocytes % 2 % Eosinophils % 1 % Basophils % 0 % Neutrophils # 11.4 H (1.3-7.7) k/uL Lymphocytes # 1.5 (1.0-4.8) k/uL Monocytes # 0.3 (0-1.0) k/uL Eosinophils # 0.1 (0-0.7) k/uL Basophils # 0.0 (0-0.2) k/uL Sodium 137 (137-145) mmol/L Potassium 4.3 (3.5-5.1) mmol/L Chloride 107 (98-107) mmol/L Carbon Dioxide 22 (22-30) mmol/L Anion Gap 8 mmol/L BUN 12 (7-17) mg/dL Creatinine 0.54 (0.52-1.04) mg/dL Est GFR (CKD-EPI)AfAm >90 (>60 ml/min/1.73 sqM) Est GFR (CKD-EPI)NonAf >90 (>60 ml/min/1.73 sqM) Glucose 158 H (74-99) mg/dL Calcium 9.6 (8.4-10.2) mg/dL Magnesium 1.8 (1.6-2.3) mg/dL Total Bilirubin 0.5 (0.2-1.3) mg/dL AST 31 (14-36) U/L ALT 72 H (9-52) U/L Alkaline Phosphatase 85 (38-126) U/L Total Protein 8.3 H (6.3-8.2) g/dL Albumin 4.8 (3.5-5.0) g/dL Lipase 162 (23-300) U/L Disposition Clinical Impression: Gastroenteritis, Dehydration, Intractable vomiting with nausea Disposition: HOME SELF-CARE Condition: Fair Instructions (If sedation given, give patient instructions): Acute Nausea and Vomiting (ED), Dehydration (ED) Prescriptions: Ondansetron Odt [Zofran Odt] 4 mg PO Q8HR PRN #12 tab PRN Reason: Nausea Is patient prescribed a controlled substance at d/c from ED?: No Referrals: Yajaira Christy DO [Primary Care Provider] - 1-2 days
[2019-04-28 08:01] LABS: Basophils % (A) 0 %; Eosinophils # (A) 0.1 k/uL (0-0.7); Eosinophils % (A) 1 %; HCT 41.6 % (34.0-46.0); HGB 13.6 gm/dL (11.4-16.0); Lymphocytes # (A) 1.5 k/uL (1.0-4.8); Lymphocytes % (A) 11 %; MCH 31.8 pg (25.0-35.0); MCHC 32.7 g/dL (31.0-37.0); Mean Platelet Volume 6.5; Monocytes # (A) 0.3 k/uL (0-1.0); Monocytes % (A) 2 %; Neutrophils # (A) 11.4 k/uL (1.3-7.7); Neutrophils % (A) 85 %; Platelet Count 476 k/uL (150-450); RBC 4.28 m/uL (3.80-5.40); RDW 13.8 % (11.5-15.5); WBC 13.4 k/uL (3.8-10.6)
[2019-04-28 08:12] LABS: ALT 72 U/L (9-52); AST 31 U/L (14-36); African American GFR (CKD) >90 (>60 ml/min/1.73 sqM); Albumin 4.8 g/dL (3.5-5.0); Alkaline Phosphatase 85 U/L (38-126); Anion Gap 8 mmol/L; Blood Urea Nitrogen 12 mg/dL (7-17); Calcium 9.6 mg/dL (8.4-10.2); Carbon Dioxide 22 mmol/L (22-30); Chloride 107 mmol/L (98-107); Glucose 158 mg/dL (74-99); Magnesium 1.8 mg/dL (1.6-2.3); Non-African American GFR(CKD) >90 (>60 ml/min/1.73 sqM); Potassium 4.3 mmol/L (3.5-5.1); Sodium 137 mmol/L (137-145); Total Bilirubin 0.5 mg/dL (0.2-1.3); Total Protein 8.3 g/dL (6.3-8.2)
[2019-04-28] MEDS ORDERED: PROMETHAZINE INJ 25 MG in SODIUM CHLORIDE 0.9% 50 ML IVPB STA (08:22)
[2019-04-28] MEDS ORDERED: SODIUM CHLORIDE 0.9% 500 ML 500 ML IV STA (08:49)
[2019-04-28] MEDS ORDERED: KETOROLAC 30 MG/ML 1 ML VIAL IVP STA (09:14)
[2019-04-28] MEDS ORDERED: METOCLOPRAMIDE 5 MG/ML 2 ML VIAL IVP STA (10:02)
[2019-04-28] MEDS ORDERED: DICYCLOMINE 10 MG/ML 2 ML AMP IM STA (10:06)
[2019-04-28 10:59] VITALS: BP 108/78; PULSE 86
[2019-04-28] MEDS ORDERED: MAG HYDROX/AL HYDROX/SIMETH 30 ML, HYOSCYAMINE ELIXIR 10 ML, LIDOCAINE VISCOUS 2% 10 ML PO STA ×3 (11:13)
[2019-04-28] MEDS ORDERED: HALOPERIDOL LACTATE 5 MG/ML 1 ML VIAL IVP STA (11:14)
[2019-04-28] MEDS ORDERED: ONDANSETRON ODT 4 MG TAB PO STA (12:07)
[2019-04-28] MEDS ORDERED: methylPREDNISolone SOD SUCCI 125 MG/2 ML VIAL IV STA (12:11)
== END 2019-04-28 12:24 | disposition home or self-care (01) ==
LOC: EC 07:06 → SUPCPDRO 07:06 → EC 12:24
DX: K52.9 Noninfective gastroenteritis and colitis, unspecified (principal); E86.0 Dehydration; M19.90 Unspecified osteoarthritis, unspecified site; Z79.891 Long term (current) use of opiate analgesic; Z88.6 Allergy status to analgesic agent; Z53.20 Procedure and treatment not carried out because of patient's decision for unspecified reasons; Z90.49 Acquired absence of other specified parts of digestive tract
CPT/HCPCS: 36415; 80053; 83690; 83735; 85025; 99284; 96374; 96375 ×5; 96372; 96361 ×4; J0500; J1630; J2550; J2765; J2405; J1885

== ENCOUNTER 2021-07-13 03:01 | Observation (INO) | payer OTHER ==
[2021-07-13] MEDS ORDERED: SODIUM CHLORIDE 0.9% 1,000 ML IV ONE ×2 (03:19)
[2021-07-13] MEDS ORDERED: MORPHINE SULFATE 4 MG/ML SYRINGE IV STA (03:19)
[2021-07-13] MEDS ORDERED: SODIUM CHLORIDE 0.9% 500 ML 500 ML IV ONE (03:19)
[2021-07-13] MEDS ORDERED: ONDANSETRON 4 MG/2 ML VIAL IVP STA (03:19)
[2021-07-13] MEDS ORDERED: ACETAMINOPHEN TAB 500 MG TAB PO STA (03:20)
--- NOTE | 2021-07-13 03:23 | ED ---
Female Urogenital HPI - General Chief complaint: Vaginal Bleeding Stated complaint: Poss miscarriage Time Seen by Provider: 07/13/21 03:07 Source: patient, RN notes reviewed, old records reviewed Mode of arrival: ambulatory Limitations: no limitations - History of Present Illness Initial comments: This is a 41-year-old female presenting 11 weeks . At 9 weeks patient did find out that she is having a miscarriage, patient found on on the ultrasound the baby did not have a heartbeat. PA patient presents today for abdominal pain abdominal cramping and vaginal bleeding. S she is not lightheaded or dizzy does not feel like she is going to pass out. Patient's main complaint is abdominal pain with bleeding and she feels like she is in labor. Patient was scheduled for a D&C with Dr. Zach BACH Complaint: vaginal bleeding, pelvic pain -: hour(s) Location: suprapubic Severity: moderate Quality: cramping, sharp Consistency: constant Improves with: none Worsens with: none Patient : Yes Associated Symptoms: vaginal bleeding, abdominal pain, weakness - Related Data Sexually active: No Home Medications Medication Instructions Recorded Confirmed Aspirin(Dose Unknown) 1 tab PO DAILY 07/12/21 07/12/21 Cymbalta(Dose Unknown) 1 tab PO DAILY 07/12/21 07/12/21 Folic Acid(Dose Unknown) 1 tab PO DAILY 07/12/21 07/12/21 Melatonin 20 mg PO HS PRN 07/12/21 07/12/21 Pnv No.95/Ferrous Fum/Folic AC 1 each PO DAILY 07/12/21 07/12/21 [ Multivitamin Tablet] diphenhydrAMINE HCL [Benadryl] 25 mg PO HS PRN 07/12/21 07/12/21 Allergies Allergy/AdvReac Type Severity Reaction Status Date / Time tramadol Allergy seizures Verified 07/13/21 03:13 ibuprofen AdvReac Unknown Verified 07/13/21 03:13 Review of Systems ROS Statement: Those systems with pertinent positive or pertinent negative responses have been documented in the HPI. ROS Other: All systems not noted in ROS Statement are negative. Past Medical History Past Medical History: GERD/Reflux, Hyperlipidemia, Osteoarthritis (OA) Additional Past Medical History / Comment(s): heart murmur, hx migraines(motrin 800mg dose) and seizures(from tramadol), hx gestational diabetes-9 yrs ago, History of Any Multi-Drug Resistant Organisms: None Reported Past Surgical History: Section, Cholecystectomy, Orthopedic Surgery Additional Past Surgical History / Comment(s): ORIF left tib/fib Past Anesthesia/Blood Transfusion Reactions: Motion Sickness Past Psychological History: No Psychological Hx Reported Smoking Status: Never smoker Past Alcohol Use History: None Reported Past Drug Use History: None Reported - Past Family History Mother Family Medical History: No Reported History General Exam Limitations: no limitations General appearance: alert, in no apparent distress Head exam: Present: atraumatic, normocephalic, normal inspection Eye exam: Present: normal appearance, PERRL, EOMI. Absent: scleral icterus, conjunctival injection, periorbital swelling ENT exam: Present: normal exam, mucous membranes moist Neck exam: Present: normal inspection. Absent: tenderness, meningismus, lymphadenopathy Respiratory exam: Present: normal lung sounds bilaterally. Absent: respiratory distress, wheezes, rales, rhonchi, stridor Cardiovascular Exam: Present: regular rate, normal rhythm, normal heart sounds. Absent: systolic murmur, diastolic murmur, rubs, gallop, clicks GI/Abdominal exam: Present: soft, normal bowel sounds. Absent: distended, tenderness, guarding, rebound, rigid Extremities exam: Present: normal inspection, full ROM, normal capillary refill. Absent: tenderness, pedal edema, joint swelling, calf tenderness Back exam: Present: normal inspection Neurological exam: Present: alert, oriented X3, CN II-XII intact Psychiatric exam: Present: normal affect, normal mood Skin exam: Present: warm, dry, intact, normal color. Absent: rash Course Vital Signs 07/13/21 07/13/21 07/13/21 03:10 03:30 03:45 Temperature 97.9 F Pulse Rate 85 50 L 55 L Respiratory 18 16 15 Rate Blood Pressure 135/78 86/58 76/61 O2 Sat by Pulse 97 96 97 Oximetry 07/13/21 07/13/21 07/13/21 04:00 04:19 04:29 Temperature 98 F 98 F Pulse Rate 69 73 72 Respiratory 18 18 18 Rate Blood Pressure 116/74 110/67 119/69 O2 Sat by Pulse 98 100 100 Oximetry 07/13/21 07/13/21 04:59 06:00 Temperature 98.1 F 97.8 F Pulse Rate 72 74 Respiratory 20 19 Rate Blood Pressure 104/59 113/71 O2 Sat by Pulse 98 98 Oximetry - Reevaluation(s) Reevaluation #1: 07/13/21 03:23 Medical record is reviewed Reevaluation #2: 07/13/21 06:06 Have a significant near syncopal event here in the emergency department were blood pressure and heart rate both dropped low likely paradoxical bradycardia secondary to blood loss. Patient is able to respond with significant IV fluid resuscitation and one unit transfusion Reevaluation #3: 07/13/21 06:06 Patient feeling much improved currently Reevaluation #4: 07/13/21 06:06 Patient informed of results and questions are answered - Consultations Consultation #1: Spoke with Dr. Johnson for Dr. Anguiano who agreed to admit this patient Medical Decision Making - Medical Decision Making 41 female to the emergency department for evaluation patient presents today for evaluation regards to vaginal bleeding miscarriage likely missed . Patient to be admitted for monitoring of vital signs as well as OB evaluation for D&C - Lab Data Result diagrams: 07/13/21 03:25 07/13/21 03:25 Lab Results 07/13/21 07/13/21 07/13/21 Range/Units 03:25 03:25 03:25 WBC 14.1 H (3.8-10.6) k/uL RBC 4.27 (3.80-5.40) m/uL Hgb 13.2 (11.4-16.0) gm/dL Hct 40.9 (34.0-46.0) % MCV 95.8 (80.0-100.0) fL MCH 30.8 (25.0-35.0) pg MCHC 32.2 (31.0-37.0) g/dL RDW 15.0 (11.5-15.5) % Plt Count 382 (150-450) k/uL MPV 8.9 Neutrophils % 73 % Lymphocytes % 20 % Monocytes % 3 % Eosinophils % 2 % Basophils % 0 % Neutrophils # 10.3 H (1.3-7.7) k/uL Lymphocytes # 2.8 (1.0-4.8) k/uL Monocytes # 0.5 (0-1.0) k/uL Eosinophils # 0.3 (0-0.7) k/uL Basophils # 0.0 (0-0.2) k/uL PT 9.4 (9.0-12.0) sec INR 0.8 (<1.2) APTT 17.6 L (22.0-30.0) sec Sodium 137 (137-145) mmol/L Potassium 5.0 (3.5-5.1) mmol/L Chloride 108 H (98-107) mmol/L Carbon Dioxide 19 L (22-30) mmol/L Anion Gap 10 mmol/L BUN 11 (7-17) mg/dL Creatinine 0.57 (0.52-1.04) mg/dL Est GFR (CKD-EPI)AfAm >90 (>60 ml/min/1.73 sqM) Est GFR (CKD-EPI)NonAf >90 (>60 ml/min/1.73 sqM) Glucose 112 H (74-99) mg/dL Calcium 9.5 (8.4-10.2) mg/dL Total Bilirubin 0.7 (0.2-1.3) mg/dL AST 28 (14-36) U/L ALT 21 (4-34) U/L Alkaline Phosphatase 62 (38-126) U/L Total Protein 8.1 (6.3-8.2) g/dL Albumin 4.5 (3.5-5.0) g/dL HCG, Quant 44448.0 mIU/mL Blood Type Blood Type Recheck Bld Type Recheck Status Antibody Screen Crossmatch Spec Expiration Date 07/13/21 07/13/21 Range/Units 03:25 03:25 WBC (3.8-10.6) k/uL RBC (3.80-5.40) m/uL Hgb (11.4-16.0) gm/dL Hct (34.0-46.0) % MCV (80.0-100.0) fL MCH (25.0-35.0) pg MCHC (31.0-37.0) g/dL RDW (11.5-15.5) % Plt Count (150-450) k/uL MPV Neutrophils % % Lymphocytes % % Monocytes % % Eosinophils % % Basophils % % Neutrophils # (1.3-7.7) k/uL Lymphocytes # (1.0-4.8) k/uL Monocytes # (0-1.0) k/uL Eosinophils # (0-0.7) k/uL Basophils # (0-0.2) k/uL PT (9.0-12.0) sec INR (<1.2) APTT (22.0-30.0) sec Sodium (137-145) mmol/L Potassium (3.5-5.1) mmol/L Chloride (98-107) mmol/L Carbon Dioxide (22-30) mmol/L Anion Gap mmol/L BUN (7-17) mg/dL Creatinine (0.52-1.04) mg/dL Est GFR (CKD-EPI)AfAm (>60 ml/min/1.73 sqM) Est GFR (CKD-EPI)NonAf (>60 ml/min/1.73 sqM) Glucose (74-99) mg/dL Calcium (8.4-10.2) mg/dL Total Bilirubin (0.2-1.3) mg/dL AST (14-36) U/L ALT (4-34) U/L Alkaline Phosphatase (38-126) U/L Total Protein (6.3-8.2) g/dL Albumin (3.5-5.0) g/dL HCG, Quant mIU/mL Blood Type A Positive A Positive Blood Type Recheck A Pos A Pos Bld Type Recheck Status No No Antibody Screen NEGATIVE Crossmatch See Detail See Detail Spec Expiration Date 07/16/2021232407/16/20212324 - Radiology Data Radiology results: report reviewed (Ultrasound OB, pending), image reviewed Critical Care Time Critical Care Time: Yes Total Critical Care Time: 31 Disposition Clinical Impression: Missed , Dysfunctional uterine bleeding, Incomplete , Vaginal bleeding, Near syncope, Hypotension Disposition: ADMITTED IP TO THIS [facility] Condition: Fair Is patient prescribed a controlled substance at d/c from ED?: No Referrals: Yajaira Christy DO [Primary Care Provider] - 1-2 days
[2021-07-13 03:46] LABS: Basophils % (A) 0 %; Eosinophils # (A) 0.3 k/uL (0-0.7); Eosinophils % (A) 2 %; HCT 40.9 % (34.0-46.0); HGB 13.2 gm/dL (11.4-16.0); Lymphocytes # (A) 2.8 k/uL (1.0-4.8); Lymphocytes % (A) 20 %; MCH 30.8 pg (25.0-35.0); MCHC 32.2 g/dL (31.0-37.0); MCV 95.8 fL (80.0-100.0); Mean Platelet Volume 8.9; Monocytes # (A) 0.5 k/uL (0-1.0); Monocytes % (A) 3 %; Neutrophils # (A) 10.3 k/uL (1.3-7.7); Neutrophils % (A) 73 %; Platelet Count 382 k/uL (150-450); RBC 4.27 m/uL (3.80-5.40); WBC 14.1 k/uL (3.8-10.6)
[2021-07-13 03:54] LABS: ALT 21 U/L (4-34); African American GFR (CKD) >90 (>60 ml/min/1.73 sqM); Albumin 4.5 g/dL (3.5-5.0); Anion Gap 10 mmol/L; Blood Urea Nitrogen 11 mg/dL (7-17); Calcium 9.5 mg/dL (8.4-10.2); Carbon Dioxide 19 mmol/L (22-30); Chloride 108 mmol/L (98-107); Glucose 112 mg/dL (74-99); Non-African American GFR(CKD) >90 (>60 ml/min/1.73 sqM); Sodium 137 mmol/L (137-145); Total Bilirubin 0.7 mg/dL (0.2-1.3); Total Protein 8.1 g/dL (6.3-8.2)
[2021-07-13 04:00] LABS: INR 0.8 (<1.2); Prothrombin Time 9.4 sec (9.0-12.0)
[2021-07-13] MEDS ORDERED: KETOROLAC 15 MG/ML 1 ML VIAL IVP STA (04:00)
[2021-07-13 04:04] LABS: AST 28 U/L (14-36); Alkaline Phosphatase 62 U/L (38-126)
[2021-07-13] MEDS ORDERED: fentaNYL (PF) 50 MCG/ML 2 ML AMP IVP PRN (04:11)
[2021-07-13 04:31] LABS: Partial Thromboplastin Time 17.6 sec (22.0-30.0)
[2021-07-13] MEDS ORDERED: ONDANSETRON 4 MG/2 ML VIAL IVP PRN (05:58)
[2021-07-13] MEDS ORDERED: NALOXONE 0.4 MG/ML 1 ML VIAL IV PRN (05:58)
[2021-07-13] MEDS: SODIUM CHLORIDE 0.9% 1,000 ML IV SCH ×2 (07:38→14:15)
[2021-07-13 08:04] VITALS: RESP 16
--- NOTE | 2021-07-13 08:12 | US ---
EXAMINATION TYPE: Transabdominal DATE OF EXAM: 07/13/2021 7:27 AM COMPARISON: NONE CLINICAL HISTORY: miscarriage. EXAM PERFORMED: EXAM MEASUREMENTS: GESTATIONAL AGE / DATING Physician Established: Not yet established Dates by LMP: LMP unknown Dates by First Scan: No previous this is first scan at this facility Dates by Current Scan for: Unable to date by today's study MATERNAL ANATOMY Uterus: 14.0 x 6.2 x 5.1cm Right Ovary: 2.5 x 1.9 x 2.1cm Left Ovary: 2.5 x 1.9 x 1.8cm Post CDS / Adnexa: wnl Presence of free fluid: no GESTATION / SURVEY The gestational sac is in the cervix. Patient is heavy bleeding and passing clots. 2 1/2 weeks ago she was scanned at her DrEphraim's office with absent heart tones. She was scheduled for a D & C this morning but came to the ER with heavy bleeding, clotting and cramping. Beta HcG (if available): 23551.0 IMPRESSION: Findings consistent with incomplete miscarriage
[2021-07-13] MEDS: MORPHINE SULFATE 4 MG/ML SYRINGE IV PRN ×2 (08:21→12:42)
[2021-07-13 11:10] LABS: Bacteria,Urine Many /hpf; Mucus,Urine Many /hpf; RBC,Urine >182 /hpf (0-5); WBC,Urine 90 /hpf (0-5)
[2021-07-13 11:11] LABS: Appearance,Urine Bloody (Clear)
[2021-07-13 11:12] LABS: Color,Urine Dark Red
--- NOTE | 2021-07-13 12:37 | P.HPOB ---
History of Present Illness H&P Date: 07/13/21 Chief Complaint: incomplete ab 41 year old presented to ER with increased bleeding. She was diagnosed with a missed ab about 10 days ago and was scheduled for a suction D&C but rescheduled it herself. She had more bleeding and cramping yesterday and came to ER where she had a syncopal episode and got IV fluids and blood. She was admitted by my partner Dr Johnson and US shows the gestational sac in the lower uterine segment. Review of Systems All systems: negative Constitutional: Denies chills, Denies fever Eyes: denies blurred vision, denies pain Ears, nose, mouth and throat: Denies headache, Denies sore throat Cardiovascular: Denies chest pain, Denies shortness of breath Respiratory: Denies cough Gastrointestinal: Denies abdominal pain, Denies diarrhea, Denies nausea, Denies vomiting Genitourinary: Denies dysuria, Denies hematuria Musculoskeletal: Denies myalgias Integumentary: Denies pruritus, Denies rash Neurological: Denies numbness, Denies weakness Psychiatric: Denies anxiety, Denies depression Endocrine: Denies fatigue, Denies weight change Past Medical History Past Medical History: GERD/Reflux, Hyperlipidemia, Osteoarthritis (OA) Additional Past Medical History / Comment(s): heart murmur, hx migraines(motrin 800mg dose) and seizures(from tramadol), hx gestational diabetes-9 yrs ago, History of Any Multi-Drug Resistant Organisms: None Reported Past Surgical History: Section, Cholecystectomy, Orthopedic Surgery Additional Past Surgical History / Comment(s): ORIF left tib/fib Past Anesthesia/Blood Transfusion Reactions: Motion Sickness Past Psychological History: No Psychological Hx Reported Smoking Status: Never smoker Past Alcohol Use History: None Reported Past Drug Use History: None Reported - Past Family History Mother Family Medical History: No Reported History Medications and Allergies Home Medications Medication Instructions Recorded Confirmed Type Melatonin 20 mg PO HS PRN 07/12/21 07/13/21 History diphenhydrAMINE HCL [Benadryl] 50 mg PO HS PRN 07/12/21 07/13/21 History Allergies Allergy/AdvReac Type Severity Reaction Status Date / Time tramadol Allergy seizures Verified 07/13/21 07:03 ibuprofen AdvReac Unknown Verified 07/13/21 07:03 Exam Osteopathic Statement: *. No significant issues noted on an osteopathic st ructural exam other than those noted in the History and Physical/Consult. Vital Signs Temp Pulse Pulse Resp BP BP Pulse Ox 07/13/21 11:35 98.1 F 80 16 91/56 99 07/13/21 09:29 76 16 101/64 07/13/21 08:04 97.6 F 71 16 110/71 99 07/13/21 07:31 98 F 79 18 107/55 97 07/13/21 06:00 97.8 F 74 19 113/71 98 07/13/21 04:59 98.1 F 72 20 104/59 98 07/13/21 04:29 98 F 72 18 119/69 100 07/13/21 04:19 98 F 73 18 110/67 100 07/13/21 04:00 69 18 116/74 98 07/13/21 03:45 55 L 15 76/61 97 07/13/21 03:30 50 L 16 86/58 96 07/13/21 03:10 97.9 F 85 18 135/78 97 Intake and Output 07/12/21 07/13/21 07/13/21 22:59 06:59 14:59 Intake Total 0 310 Balance 0 310 Intake: Blood Product 0 310 Rc As-1 Unit 0 310 [id number] Other: # Voids 2 Weight 67.585 kg 67.585 kg Heart: RRR Lungs: CTAB Abdomen: soft, nontender Extremeties: neg alex's Results Result Diagrams: 07/13/21 03:25 07/13/21 03:25 Abnormal Lab Results - Last 24 Hours (Table) 07/13/21 07/13/21 07/13/21 Range/Units 03:25 03:25 03:25 WBC 14.1 H (3.8-10.6) k/uL Neutrophils # 10.3 H (1.3-7.7) k/uL APTT 17.6 L (22.0-30.0) sec Chloride 108 H (98-107) mmol/L Carbon Dioxide 19 L (22-30) mmol/L Glucose 112 H (74-99) mg/dL Urine Appearance (Clear) Urine RBC (0-5) /hpf Urine WBC (0-5) /hpf Urine Bacteria (None) /hpf Urine Mucus (None) /hpf Crossmatch 07/13/21 07/13/21 07/13/21 Range/Units 03:25 03:25 10:30 WBC (3.8-10.6) k/uL Neutrophils # (1.3-7.7) k/uL APTT (22.0-30.0) sec Chloride (98-107) mmol/L Carbon Dioxide (22-30) mmol/L Glucose (74-99) mg/dL Urine Appearance Bloody H (Clear) Urine RBC >182 H (0-5) /hpf Urine WBC 90 H (0-5) /hpf Urine Bacteria Many H (None) /hpf Urine Mucus Many H (None) /hpf Crossmatch See Detail See Detail Assessment and Plan (1) Incomplete Current Visit: Yes Status: Acute Code(s): O03.4 - INCOMPLETE SPONTANEOUS WITHOUT COMPLICATION SNOMED Code(s): 152634793 Plan: 1. suction D&C
[2021-07-13] MEDS ORDERED: IV FLUID CONTINUATION 700 ML IV ONE (15:53)
[2021-07-13 15:56] VITALS: TEMP 98.9
[2021-07-13] MEDS ORDERED: ONDANSETRON 4 MG/2 ML VIAL IVP ONE (16:31)
[2021-07-13] MEDS ORDERED: LIDOCAINE 1% INJ 10MG/ML (20 ML MDV) ONE (16:48)
[2021-07-13] MEDS ORDERED: MIDAZOLAM 2 MG/2 ML VIAL ONE (16:48)
[2021-07-13] MEDS ORDERED: fentaNYL (PF) 50 MCG/ML 2 ML AMP ONE (16:48)
[2021-07-13] MEDS ORDERED: SUCCINYLCHOLINE CHLORIDE 100 MG/5 ML SYR IV ONE (16:48)
[2021-07-13] MEDS ORDERED: PROPOFOL 10 MG/ML 20 ML VIAL IV ONE (16:48)
--- NOTE | 2021-07-13 17:25 | P.OP ---
Date of Procedure: 07/13/21 Preoperative Diagnosis: 1. Incomplete Postoperative Diagnosis: 1. Incomplete Procedure(s) Performed: Suction D&C Anesthesia: NICK Surgeon: Cynthia Serrano Estimated Blood Loss (ml): 150 IV fluids (ml): 200 Urine output (ml): 55 Pathology: other (Products of conception) Condition: stable Disposition: PACU Operative Findings: Cervix is dilated 2 cm. Large amount products of conception. Description of Procedure: Patient is taken the operating room and general anesthesia was obtained without difficulty. She is prepped and draped in normal sterile fashion dorsal lithotomy position, legs placed in stirrups. Bladder was drained of all urine. Weighted speculum placed in vagina the anterior lip the cervix was grasped with single-tooth tenaculum. There was a clot sitting at the cervix that was removed with a ring forcep. The suction was set to a #12 curved suction curet and passed several times to obtain tissue and blood. A sharp curette was used to ensure all tissue had been removed. Hemostasis achieved. Patient to our procedure well, sponge and instrument counts correct 2. She is taken to recovery in stable condition. CBC taken during the surgery is pending.
[2021-07-13 17:55] LABS: HCT 24.8 % (34.0-46.0); MCHC 34.4 g/dL (31.0-37.0); MCV 92.8 fL (80.0-100.0); Mean Platelet Volume 7.8; Platelet Count 310 k/uL (150-450); RBC 2.68 m/uL (3.80-5.40); RDW 14.8 % (11.5-15.5); WBC 9.5 k/uL (3.8-10.6)
[2021-07-13 18:08] LABS: HGB 8.5 gm/dL (11.4-16.0)
[2021-07-13 20:14] VITALS: BP 95/64; PULSE 80
[2021-07-14] MEDS ORDERED: Pre Op ABX Message 1 EACH MISC MISCELLANE ONE (05:00)
--- NOTE | 2021-07-15 12:55 | P.DS ---
Providers Date of admission: 07/13/21 05:58 Expected date of discharge: 07/15/21 Attending physician: Cynthia Serrano Primary care physician: Yajaira Christy - Discharge Diagnosis(es) (1) Incomplete Status: Resolved (2) Acute blood loss anemia Status: Acute (3) Status post D&C Status: Acute Hospital Course: This patient was admitted from the ER by Dr Johnson for observation. She presented with vaginal bleeding from a miscarriage diagnosed a few weeks ago and had a syncopal episode in ER. She was given one unit of blood and admitted. When I saw her, I scheduled a suction D&C for as soon as OR could take us. She underwent suction D&C without issue. Her hemoglobin decreased from 13 to 8.5. She is asymptomatic and cramping is minimal as is bleeding. She was discharged home a few hours after the procedure. Patient Condition at Discharge: Good Plan - Discharge Summary New Discharge Prescriptions: New Acetaminophen-Codeine 300-30mg [Tylenol #3] 1 - 2 tab PO Q6H PRN #20 tablet PRN Reason: Pain No Action diphenhydrAMINE HCL [Benadryl] 50 mg PO HS PRN PRN Reason: sleep Melatonin 20 mg PO HS PRN PRN Reason: sleep Discharge Medication List Melatonin 20 mg PO HS PRN 07/12/21 [History] diphenhydrAMINE HCL [Benadryl] 50 mg PO HS PRN 07/12/21 [History] Acetaminophen-Codeine 300-30mg [Tylenol #3] 1 - 2 tab PO Q6H PRN #20 tablet 07/13/21 [Rx] Follow up Appointment(s)/Referral(s): Cynthia Serrano DO [Doctor of Osteopathic Medicine] - 4 Weeks Yajaira Christy DO [Primary Care Provider] - 1-2 days Discharge Disposition: HOME SELF-CARE
== END 2021-07-13 20:05 | disposition home or self-care (01) ==
LOC: EC 03:01 → 4FBP 05:58 → INTOOBSV 05:58 → UNDODISIN 20:05
PROVIDERS: ADMIT Obstetrics & Gynecology; ATTEND Obstetrics & Gynecology
DX: O03.4 Incomplete spontaneous abortion without complication (principal); D62 Acute posthemorrhagic anemia; I95.9 Hypotension, unspecified; K21.9 Gastro-esophageal reflux disease without esophagitis; E78.5 Hyperlipidemia, unspecified; M19.90 Unspecified osteoarthritis, unspecified site; R01.1 Cardiac murmur, unspecified; G43.909 Migraine, unspecified, not intractable, without status migrainosus; Z86.32 Personal history of gestational diabetes; Z86.69 Personal history of other diseases of the nervous system and sense organs; Z90.49 Acquired absence of other specified parts of digestive tract; Z88.6 Allergy status to analgesic agent; Z88.5 Allergy status to narcotic agent; Z87.19 Personal history of other diseases of the digestive system; Z98.891 History of uterine scar from previous surgery; Z87.81 Personal history of (healed) traumatic fracture; Z98.890 Other specified postprocedural states
CPT/HCPCS: 96375 ×2; 96361; 96374; 99284; 36415; 86900; 86901; 88305; 80053; 85025; 85027; 85610; 85730; 86850; 86920; 81001; 84702; 76801; 59812; G0378; P9016; J2250; J2270; J2405; J2001; J3010; J1885; J0330; J2704; 96360

== ENCOUNTER 2021-08-04 03:32 | Observation (INO) | payer OTHER ==
--- NOTE | 2021-08-04 03:45 | ED ---
Recheck HPI - General Stated Complaint: low hemoglobin Time Seen by Provider: 08/04/21 03:43 Source: RN notes reviewed, old records reviewed - History of Present Illness MD Complaint: abnormal lab, needs IV antibiotics -: days(s) Returns Today for: Called Because of Abnormal Lab/Test, persistent/worsening pain related to initial visit Symptoms Since Prior Visit: worsening pain, fever Associated Symptoms: fever, nausea, abdominal pain Treatments Prior to Arrival: IV/IO, Given Antibiotics on, Given Pain Meds on - Related Data Home Medications Medication Instructions Recorded Confirmed Melatonin 20 mg PO HS PRN 07/12/21 07/13/21 diphenhydrAMINE HCL [Benadryl] 50 mg PO HS PRN 07/12/21 07/13/21 Previous Rx's Medication Instructions Recorded Acetaminophen-Codeine 300-30mg 1 - 2 tab PO Q6H PRN #20 tablet 07/13/21 [Tylenol #3] Allergies Allergy/AdvReac Type Severity Reaction Status Date / Time tramadol Allergy seizures Verified 07/13/21 07:03 ibuprofen AdvReac Unknown Verified 07/13/21 07:03 Review of Systems ROS Statement: Those systems with pertinent positive or pertinent negative responses have been documented in the HPI. ROS Other: All systems not noted in ROS Statement are negative. Past Medical History Past Medical History: GERD/Reflux, Hyperlipidemia, Osteoarthritis (OA) Additional Past Medical History / Comment(s): heart murmur, hx migraines(motrin 800mg dose) and seizures(from tramadol), hx gestational diabetes-9 yrs ago, History of Any Multi-Drug Resistant Organisms: None Reported Past Surgical History: Section, Cholecystectomy, Orthopedic Surgery Additional Past Surgical History / Comment(s): ORIF left tib/fib Past Anesthesia/Blood Transfusion Reactions: Motion Sickness Past Psychological History: No Psychological Hx Reported Smoking Status: Never smoker Past Alcohol Use History: None Reported Past Drug Use History: None Reported - Past Family History Mother Family Medical History: No Reported History General Exam General appearance: alert, in no apparent distress Head exam: Present: atraumatic, normocephalic, normal inspection Eye exam: Present: normal appearance, PERRL, EOMI. Absent: scleral icterus, conjunctival injection, periorbital swelling ENT exam: Present: normal exam, mucous membranes moist Neck exam: Present: normal inspection. Absent: tenderness, meningismus, lymphadenopathy Respiratory exam: Present: normal lung sounds bilaterally. Absent: respiratory distress, wheezes, rales, rhonchi, stridor Cardiovascular Exam: Present: regular rate, normal rhythm, normal heart sounds. Absent: systolic murmur, diastolic murmur, rubs, gallop, clicks GI/Abdominal exam: Present: soft, normal bowel sounds. Absent: distended, tenderness, guarding, rebound, rigid Extremities exam: Present: normal inspection, full ROM, normal capillary refill. Absent: tenderness, pedal edema, joint swelling, calf tenderness Back exam: Present: normal inspection Neurological exam: Present: alert, oriented X3, CN II-XII intact Psychiatric exam: Present: normal affect, normal mood Skin exam: Present: warm, dry, intact, normal color. Absent: rash Course Vital Signs 08/04/21 03:41 Pulse Rate 75 Respiratory 18 Rate Blood Pressure 105/62 O2 Sat by Pulse 100 Oximetry Disposition Clinical Impression: Acute appendicitis, Anemia, Transaminitis, Abdominal pain Disposition: ADMITTED IP TO THIS HOSP Condition: Fair Is patient prescribed a controlled substance at d/c from ED?: No Referrals: Fabrice Clemente MD [Primary Care Provider] - 1-2 days
[2021-08-04] MEDS ORDERED: AMPICILLIN-SULBACTAM 3 GM in SODIUM CHLORIDE 0.9% 100 ML IVPB STA (03:46)
[2021-08-04] MEDS ORDERED: ONDANSETRON 4 MG/2 ML VIAL IVP PRN (03:46)
[2021-08-04] MEDS ORDERED: LORazepam 2 MG/ML INJ IV PRN (03:46)
[2021-08-04] MEDS ORDERED: NALOXONE 0.4 MG/ML 1 ML VIAL IV PRN (03:46)
[2021-08-04] MEDS ORDERED: MORPHINE SULFATE 4 MG/ML SYRINGE IV STA (03:51)
[2021-08-04] MEDS ORDERED: SODIUM CHLORIDE 0.9% 1,000 ML IV STA (03:51)
[2021-08-04] MEDS ORDERED: SODIUM CHLORIDE 0.9% 500 ML 500 ML IV STA (03:51)
[2021-08-04] MEDS: SODIUM CHLORIDE 0.9% 1,000 ML IV SCH ×3 (04:34→19:28)
[2021-08-04 04:44] LABS: Prothrombin Time 10.6 sec (9.0-12.0)
[2021-08-04 05:09] LABS: Basophils % (A) 0 %; Eosinophils % (A) 1 %; HCT 25.8 % (34.0-46.0); HGB 7.9 gm/dL (11.4-16.0); Hypochromasia Marked; Lymphocytes # (A) 0.6 k/uL (1.0-4.8); Lymphocytes % (A) 18 %; MCH 28.1 pg (25.0-35.0); MCHC 30.7 g/dL (31.0-37.0); MCV 91.7 fL (80.0-100.0); Mean Platelet Volume 7.3; Monocytes # (A) 0.2 k/uL (0-1.0); Monocytes % (A) 6 %; Neutrophils # (A) 2.5 k/uL (1.3-7.7); Neutrophils % (A) 73 %; Platelet Count 313 k/uL (150-450); Poikilocytosis Moderate; RBC 2.82 m/uL (3.80-5.40); RDW 14.9 % (11.5-15.5); WBC 3.4 k/uL (3.8-10.6)
[2021-08-04 05:11] LABS: Partial Thromboplastin Time 21.2 sec (22.0-30.0)
[2021-08-04 06:49] LABS: ALT 734 U/L (4-34); AST 740 U/L (14-36); African American GFR (CKD) >90 (>60 ml/min/1.73 sqM); Alkaline Phosphatase 266 U/L (38-126); Amylase 45 U/L (30-110); Anion Gap 3 mmol/L; Blood Urea Nitrogen 6 mg/dL (7-17); Calcium 6.9 mg/dL (8.4-10.2); Carbon Dioxide 21 mmol/L (22-30); Chloride 111 mmol/L (98-107); Glucose 93 mg/dL (74-99); Lipase 80 U/L (23-300); Non-African American GFR(CKD) >90 (>60 ml/min/1.73 sqM); Potassium 3.8 mmol/L (3.5-5.1); Sodium 135 mmol/L (137-145); Total Bilirubin 1.6 mg/dL (0.2-1.3); Total Protein 5.6 g/dL (6.3-8.2)
[2021-08-04] MEDS: MORPHINE SULFATE 4 MG/ML SYRINGE IV PRN ×3 (08:32→21:20)
--- NOTE | 2021-08-04 08:34 | US ---
EXAMINATION TYPE: US gallbladder DATE OF EXAM: 08/04/2021 COMPARISON: NONE CLINICAL HISTORY: pain. EXAM MEASUREMENTS: Liver Length: 12.2 cm Gallbladder Wall: Surgically absent CBD: 1.0 cm Right Kidney: 12.3 x 5.0 x 6.0 cm Pancreas: Partially obscured by bowel gas, portions visualized wnl Liver: wnl Gallbladder: Surgically absent Evidence for sonographic Akins's sign: no CBD: wnl for cholecystectomy Right Kidney: wnl IMPRESSION: 1. Postcholecystectomy changes.
--- NOTE | 2021-08-04 08:46 | US ---
EXAMINATION TYPE: US pelvic complete DATE OF EXAM: 08/04/2021 COMPARISON: NONE CLINICAL HISTORY: pain. TECHNIQUE: . Transabdominal sonographic images of the pelvis were acquired. Transvaginal sonographi c images were medically necessary to better assess the following anatomy: EXAM MEASUREMENTS: Uterus: 11.3 x 4.5 x 5.8 cm Endometrial Stripe: 0.4 cm Right Ovary: 3.6 x 2.1 x 1.4 cm Left Ovary: 2.8 x 1.2 x 1.3 cm 1. Uterus: Anteverted wnl 2. Endometrium: wnl 3. Right Ovary: wnl 4. Left Ovary: wnl Spectral, color and waveform doppler imaging shows good arterial and venous flow within the ovaries ; there is no evidence for ovarian torsion. 5. Bilateral Adnexa: wnl 6. Posterior cul-de-sac: wnl IMPRESSION: 1. No abnormality.
--- NOTE | 2021-08-04 09:45 | P.CONS ---
History of Present Illness - Reason for Consult Consult date: 08/04/21 Transaminitis Requesting physician: Fabrice Clemente - Chief Complaint Right upper quadrant pain - History of Present Illness Under [id number] white female who presented to the emergency department as a transfer from [facility] for suspected appendicitis and transaminitis. Apparently the patient was recently admitted to the hospital and underwent a D&C on 06/12/2021 for spontaneous at that time the patient was anemic with a hemoglobin 8.5 on discharge and also have follow-up labs that still showed the patient to be anemic with a hemoglobin of 7.1 reportedly. Liver enzymes at [facility] were elevated total bilirubin 1.4 AST 1084 AST 1059 alkaline phosphatase 360. He had abdominal ultrasound that showed a normal liver no CBD dilation or stone and patient also underwent a CT of the abdomen and pelvis at [facility] that showed a dilated appendix with fluid surrounding with mild fat stranding there was no biliary dilation. Liver looked normal. She states the abdominal pain has improved she is denying any lower abdominal pain. She did say that she had episode of vomiting yesterday with the pain. She states she had a fever at home of 102. She's been afebrile this admission. Repeat labs today show WBC 3.4 hemoglobin 7.9 hematocrit 25 platelet count 313,009 1.0 total bilirubin 1.6 AST [id number] T7 34 alk phos 266 amylase 45 lipase 80. Patient also has a history of cholecystectomy approximately 5 years ago for nonfunctioning gallbladder done by Dr. Pollack. She states at that time she did have some elevated liver function tests and was told that she likely had fatty liver. She denies any history of alcohol abuse no new medications or antibiotics. Review of Systems REVIEW OF SYSTEMS: CARDIOPULMONARY: No chest pain or shortness of breath. Gastrointestinal: Right upper quadrant pain radiating to the jaw and right flank. Nausea with vomiting 1 episode yesterday. No hematemesis, coffee- ground emesis. No rectal bleeding, or melena. GENITOURINARY: No dysuria or hematuria. MUSCULOSKELETAL: Reports normal range of motion., Joint pain. SKIN: No rashes. No jaundice. ENDOCRINE: No chills, fevers. No excessive weight gain or loss. No polydipsia or polyuria. PSYCHIATRIC: Unremarkable. NEUROLOGY: No change in mental status. Denies dizziness, headache. ENT: Vision unremarkable. CONSTITUTIONAL: No recent weight loss. Reported fevers and chills. Past Medical History Past Medical History: GERD/Reflux, Hyperlipidemia, Osteoarthritis (OA) Additional Past Medical History / Comment(s): heart murmur, hx migraines(motrin 800mg dose) and seizures(from tramadol), hx gestational diabetes-9 yrs ago, History of Any Multi-Drug Resistant Organisms: None Reported Past Surgical History: Section, Cholecystectomy, Orthopedic Surgery Additional Past Surgical History / Comment(s): ORIF left tib/fib Past Anesthesia/Blood Transfusion Reactions: Motion Sickness Past Psychological History: No Psychological Hx Reported Smoking Status: Never smoker Past Alcohol Use History: None Reported Past Drug Use History: None Reported - Past Family History Mother Family Medical History: No Reported History Medications and Allergies Home Medications Medication Instructions Recorded Confirmed Type No Known Home Medications 08/04/21 08/04/21 History Allergies Allergy/AdvReac Type Severity Reaction Status Date / Time ibuprofen AdvReac elevates Verified 08/04/21 06:39 creatinine tramadol AdvReac seizures Verified 08/04/21 06:39 Physical Exam Vitals: Vital Signs Temp Pulse Resp BP Pulse Ox 08/04/21 06:42 98.8 F 83 18 97/50 97 08/04/21 04:53 79 18 101/51 100 08/04/21 03:41 98.8 F 75 18 105/62 100 Intake and Output 08/03/21 08/04/21 08/04/21 22:59 06:59 14:59 Other: Weight 67.585 kg General appearance: The patient is alert, oriented, appears in no acute distress. HET: Head is normocephalic and atraumatic. Conjunctiva pink. Sclera anicteric. Neck: Supple without lymphadenopathy. Trachea midline. Heart: S1 S2. Regular rate and rhythm. Lungs: Clear to auscultation. Abdomen: Soft, upper quadrant tenderness, nondistended with bowel sounds. No guarding or rigidity. Skin: No rashes. No jaundice. Extremities: Normal skin color and turgor. No pedal edema. Neurological: No focal deficits. Alert and oriented x3. Results CBC & Chem 7: 08/04/21 03:52 08/04/21 03:52 Labs: Abnormal Lab Results - Last 24 Hours (Table) 08/04/21 08/04/21 08/04/21 Range/Units 03:52 03:52 03:52 WBC 3.4 L (3.8-10.6) k/uL RBC 2.82 L (3.80-5.40) m/uL Hgb 7.9 L (11.4-16.0) gm/dL Hct 25.8 L (34.0-46.0) % MCHC 30.7 L (31.0-37.0) g/dL Lymphocytes # 0.6 L (1.0-4.8) k/uL APTT 21.2 L (22.0-30.0) sec Sodium 135 L (137-145) mmol/L Chloride 111 H (98-107) mmol/L Carbon Dioxide 21 L (22-30) mmol/L BUN 6 L (7-17) mg/dL Calcium 6.9 L (8.4-10.2) mg/dL Total Bilirubin 1.6 H (0.2-1.3) mg/dL AST 740 H (14-36) U/L ALT 734 H (4-34) U/L Alkaline Phosphatase 266 H (38-126) U/L Total Protein 5.6 L (6.3-8.2) g/dL Albumin 3.0 L (3.5-5.0) g/dL Comments: Gallbladder ultrasound: Reports liver within normal limits, gallbladder surgically absent, COPD within normal limits for cholecystectomy measuring 1.0 cm Assessment and Plan (1) Transaminitis Narrative/Plan: 41-year-old female who initially presented to [facility] with complaints of right upper quadrant abdominal pain with fever of 102 at home. She was seen and evaluated there, had a CT of the abdomen and pelvis that showed no CBD dilation, normal liver normal pancreas, appendix dilated with fluid with mild fat stranding. As part of her workup at [facility] she was noted have elevated liver enzymes total bilirubin 1.4 AST thousand 84 and 2059 alk phos 360. She had an ultrasound that showed no CBD dilation and no evidence of stones. She was transferred to the emergency department at [facility] due to recent D&C and availability of gynecology. The patient denies any recent me dication changes, no recent antibiotic use, no history of hepatitis, and no history of alcohol abuse. She does state that she had her gallbladder removed approximately 5 years ago for nonfunctioning, no stones. At that time she did have some elevation in her LFTs for which she was seen by gastroenterology and determine likely fatty liver. Repeat labs LFTs are improving. Pain is improving. Will order MRCP to rule out CBD stone/obstruction. Current Visit: Yes Status: Acute Code(s): R74.01 - ELEVATION OF LEVELS OF LIVER TRANSAMINASE LEVELS SNOMED Code(s): 696294727 (2) Right upper quadrant abdominal pain Current Visit: Yes Status: Acute Code(s): R10.11 - RIGHT UPPER QUADRANT PAIN SNOMED Code(s): 673328485 Plan: 1. Continue symptomatic and supportive care 2. Keep nothing by mouth 3. MRCP ordered 4. Repeat CBC, CMP daily 5. Iron studies ordered 6. Continue with recommendations from general surgery 7. Further recommendations forthcoming pending MRCP results Thank you for this consultation, we will continue to follow. Dr. Shanda Neumann I agree with the dictator's note, documented as a scribe by Saray Bishop.
[2021-08-04 09:58] LABS: Hepatitis A Antibody IgM Nonreactive (Nonreactive); Hepatitis B Core IgM Nonreactive (Nonreactive); Hepatitis B Surface Antigen Nonreactive (Nonreactive); Hepatitis C IgG Antibody Nonreactive (Nonreactive)
[2021-08-04] MEDS: PIPERACILLIN-TAZOBACTAM 3.375 GM in SODIUM CHLORIDE 0.9% 100 ML IVPB SCH ×2 (12:35→19:26)
[2021-08-04] MEDS ORDERED: AMPICILLIN-SULBACTAM 3 GM in SODIUM CHLORIDE 0.9% 100 ML IVPB SCH (13:00)
--- NOTE | 2021-08-04 16:21 | P.GSCN ---
History of Present Illness Consult date: 08/04/21 History of present illness: THis is a 41 year old female who recently had a miscarriage with a significant hemorrhage 2.5 weeks ago. Patient underwent DNC by OBGYN at that time and was stabilized and sent discharged home. She presented with fever of 102 at home with nausea and RUQ pain radiating to her neck. CT chest abd/pelvis showed no PE. It did show slightly dilated appendix with questionable inflammatory change. Patient denies RLQ abdominal pain. She also had a HgB of 7.5 at [facility] earlier that day and elevated liver enzymes. Patient has a history of cholecystectomy in 2017. This morning she stated she was feeling better. No NV no fevers. Past Medical History Past Medical History: GERD/Reflux, Hyperlipidemia, Osteoarthritis (OA) Additional Past Medical History / Comment(s): heart murmur, hx migraines(motrin 800mg dose) and seizures(from tramadol), hx gestational diabetes-9 yrs ago, History of Any Multi-Drug Resistant Organisms: None Reported Past Surgical History: Section, Cholecystectomy, Orthopedic Surgery Additional Past Surgical History / Comment(s): ORIF left tib/fib Past Anesthesia/Blood Transfusion Reactions: Motion Sickness Past Psychological History: No Psychological Hx Reported Smoking Status: Never smoker Past Alcohol Use History: None Reported Past Drug Use History: None Reported - Past Family History Mother Family Medical History: No Reported History Medications and Allergies Home Medications Medication Instructions Recorded Confirmed Type No Known Home Medications 08/04/21 08/04/21 History Allergies Allergy/AdvReac Type Severity Reaction Status Date / Time ibuprofen AdvReac elevates Verified 08/04/21 06:39 creatinine tramadol AdvReac seizures Verified 08/04/21 06:39 Surgical - Exam Osteopathic Statement: *. No significant issues noted on an osteopathic structural exam other than those noted in the History and Physical/Consult. Vital Signs Temp Pulse Resp BP Pulse Ox 98.8 F 75 18 105/62 100 08/04/21 03:41 08/04/21 03:41 08/04/21 03:41 08/04/21 03:41 08/04/21 03:41 - General well developed, well nourished, no distress - Neck no masses, trachea midline - Respiratory normal expansion, normal respiratory effort - Cardiovascular Rhythm: regular - Abdomen negative psoas sign Abdomen: soft, non tender - Neurologic normal coordination, normal sensation - Psychiatric oriented to time, oriented to person, oriented to place Results - Labs 08/04/21 03:52 08/04/21 03:52 Abnormal Lab Results - Last 24 Hours (Table) 08/04/21 08/04/21 08/04/21 Range/Units 03:52 03:52 03:52 WBC 3.4 L (3.8-10.6) k/uL RBC 2.82 L (3.80-5.40) m/uL Hgb 7.9 L (11.4-16.0) gm/dL Hct 25.8 L (34.0-46.0) % MCHC 30.7 L (31.0-37.0) g/dL Lymphocytes # 0.6 L (1.0-4.8) k/uL APTT 21.2 L (22.0-30.0) sec Sodium 135 L (137-145) mmol/L Chloride 111 H (98-107) mmol/L Carbon Dioxide 21 L (22-30) mmol/L BUN 6 L (7-17) mg/dL Calcium 6.9 L (8.4-10.2) mg/dL Total Bilirubin 1.6 H (0.2-1.3) mg/dL AST 740 H (14-36) U/L ALT 734 H (4-34) U/L Alkaline Phosphatase 266 H (38-126) U/L Total Protein 5.6 L (6.3-8.2) g/dL Albumin 3.0 L (3.5-5.0) g/dL Diabetes panel 08/04/21 Range/Units 03:52 Sodium 135 L (137-145) mmol/L Potassium 3.8 (3.5-5.1) mmol/L Chloride 111 H (98-107) mmol/L Carbon Dioxide 21 L (22-30) mmol/L BUN 6 L (7-17) mg/dL Creatinine 0.53 (0.52-1.04) mg/dL Glucose 93 (74-99) mg/dL Calcium 6.9 L (8.4-10.2) mg/dL AST 740 H (14-36) U/L ALT 734 H (4-34) U/L Alkaline Phosphatase 266 H (38-126) U/L Total Protein 5.6 L (6.3-8.2) g/dL Albumin 3.0 L (3.5-5.0) g/dL Calcium panel 08/04/21 Range/Units 03:52 Calcium 6.9 L (8.4-10.2) mg/dL Albumin 3.0 L (3.5-5.0) g/dL Pituitary panel 08/04/21 Range/Units 03:52 Sodium 135 L (137-145) mmol/L Potassium 3.8 (3.5-5.1) mmol/L Chloride 111 H (98-107) mmol/L Carbon Dioxide 21 L (22-30) mmol/L BUN 6 L (7-17) mg/dL Creatinine 0.53 (0.52-1.04) mg/dL Glucose 93 (74-99) mg/dL Calcium 6.9 L (8.4-10.2) mg/dL Adrenal panel 08/04/21 Range/Units 03:52 Sodium 135 L (137-145) mmol/L Potassium 3.8 (3.5-5.1) mmol/L Chloride 111 H (98-107) mmol/L Carbon Dioxide 21 L (22-30) mmol/L BUN 6 L (7-17) mg/dL Creatinine 0.53 (0.52-1.04) mg/dL Glucose 93 (74-99) mg/dL Calcium 6.9 L (8.4-10.2) mg/dL Total Bilirubin 1.6 H (0.2-1.3) mg/dL AST 740 H (14-36) U/L ALT 734 H (4-34) U/L Alkaline Phosphatase 266 H (38-126) U/L Total Protein 5.6 L (6.3-8.2) g/dL Albumin 3.0 L (3.5-5.0) g/dL Assessment and Plan Assessment: Rule out appendicitis Elevated liver enzymes Anemia Plan: Patient has a confounding clinical picture. I would expect elevated liver enzymes from shock liver from her miscarriage to have resolved at this point. She does not have physical exam findings consistent with appendicitis. At this time I recommend GI consult, SILK WINDING MACHINE OPERATOR consult, IV abx, NPO and IV fluids. I will continue with serial abdominal exams and if patient clinically declines or physical exam changes I will consider diagnostic laparoscopy with possible appendectomy. Further recs to follow.
--- NOTE | 2021-08-04 16:27 | MR ---
MRCP HISTORY: Right upper quadrant pain, elevated liver function tests Multiplanar multisequence imaging obtained through the abdomen with three-dimensional reconstructions performed through the biliary system. Exam correlated to CT scan from outside institution 08/03/2021, ultrasound gallbladder 07/07/2021, pelvic ultrasound 08/04/2021 There is some artifact, motion on the exam. Signal drop on out of phase imaging may be indicative of underlying hepatic steatosis Patient is post cholecystectomy. There is some prominence of the proper hepatic duct, common bile duct likely due to postcholecystectomy change, no evident filling defect to suggest choledocholithiasis. Tapering is no margarita distally of the common bile duct. No evident mass, difficult to exclude ampullary lesion however the basis of this exam. Small amount of fluid is present about the liver. There is no retroperitoneal adenopathy. Aorta shows normal caliber. Spleen is borderline enlarged. No evident adrenal mass. Pancreas shows no mass, kidneys are within normal limits. There is a left ovarian cystic lesion not seen on pelvic ultrasound, some fluid signal is present abo ut the cystic focus. There is some fluid in the right lower quadrant. Appendix not seen with certaint y. Graph lung bases show no effusion. IMPRESSION: There is minimal ascites. Findings suggest hepatic steatosis. No evident choledocholithia sis. Tapered distal common bile duct as described. Splenomegaly is borderline. Left ovarian cyst not seen on pelvic ultrasound.
--- NOTE | 2021-08-04 18:01 | P.OBCN ---
History of Present Illness Consult date: 08/04/21 Reason for consult: other (S/P D&C 3 weeks ago) Chief complaint: abdominal pain History of present illness: 41 year old presents to ER c/o right upper quadrant pain radiating up to chest and jaw. She did have some vomiting and fever as well. Through imaging and labs it is still unclear the etiology. WBC are low, and liver enzymes are very high. Her pain is improved somewhat. Pt had suction D&C 17 days ago with anemia postoperatively from acute blood loss. She is no longer bleeding and pelvic US was normal. Review of Systems All systems: negative Constitutional: Reports fever, Denies chills Eyes: denies blurred vision, denies pain Ears, nose, mouth and throat: Denies headache, Denies sore throat Cardiovascular: Denies chest pain, Denies shortness of breath Respiratory: Denies cough Gastrointestinal: Reports abdominal pain, Reports indigestion, Reports nausea, Denies diarrhea, Denies vomiting Genitourinary: Denies dysuria, Denies hematuria Musculoskeletal: Denies myalgias Integumentary: Denies pruritus, Denies rash Neurological: Denies numbness, Denies weakness Psychiatric: Denies anxiety, Denies depression Endocrine: Denies fatigue, Denies weight change Past Medical History Past Medical History: GERD/Reflux, Hyperlipidemia, Osteoarthritis (OA) Additional Past Medical History / Comment(s): heart murmur, hx migraines(motrin 800mg dose) and seizures(from tramadol), hx gestational diabetes-9 yrs ago, History of Any Multi-Drug Resistant Organisms: None Reported Past Surgical History: Section, Cholecystectomy, Orthopedic Surgery Additional Past Surgical History / Comment(s): ORIF left tib/fib Past Anesthesia/Blood Transfusion Reactions: Motion Sickness Past Psychological History: No Psychological Hx Reported Smoking Status: Never smoker Past Alcohol Use History: None Reported Past Drug Use History: None Reported - Past Family History Mother Family Medical History: No Reported History Medications and Allergies Home Medications Medication Instructions Recorded Confirmed Type No Known Home Medications 08/04/21 08/04/21 History Allergies Allergy/AdvReac Type Severity Reaction Status Date / Time ibuprofen AdvReac elevates Verified 08/04/21 06:39 creatinine tramadol AdvReac seizures Verified 08/04/21 06:39 Exam Osteopathic Statement: *. No significant issues noted on an osteopathic structural exam other than those noted in the History and Physical/Consult. Vital Signs Temp Pulse Pulse Resp BP BP Pulse Ox 08/04/21 16:15 98.7 F 76 16 112/63 100 08/04/21 10:59 98.3 F 08/04/21 10:57 71 18 94/57 98 08/04/21 09:05 74 16 95/55 08/04/21 08:26 73 16 98/56 100 08/04/21 06:42 98.8 F 83 18 97/50 97 08/04/21 04:53 79 18 101/51 100 08/04/21 03:41 98.8 F 75 18 105/62 100 Intake and Output 08/04/21 08/04/21 08/04/21 06:59 14:59 22:59 Other: Weight 67.585 kg 67.585 kg Heart: RRR Lungs: CTAB Abdomen: soft, nontender Extremeties: neg homans Results Result Diagrams: 08/04/21 03:52 08/04/21 03:52 Abnormal Lab Results - Last 24 Hours (Table) 08/04/21 08/04/21 08/04/21 Range/Units 03:52 03:52 03:52 WBC 3.4 L (3.8-10.6) k/uL RBC 2.82 L (3.80-5.40) m/uL Hgb 7.9 L (11.4-16.0) gm/dL Hct 25.8 L (34.0-46.0) % MCHC 30.7 L (31.0-37.0) g/dL Lymphocytes # 0.6 L (1.0-4.8) k/uL APTT 21.2 L (22.0-30.0) sec Sodium 135 L (137-145) mmol/L Chloride 111 H (98-107) mmol/L Carbon Dioxide 21 L (22-30) mmol/L BUN 6 L (7-17) mg/dL Calcium 6.9 L (8.4-10.2) mg/dL Total Bilirubin 1.6 H (0.2-1.3) mg/dL AST 740 H (14-36) U/L ALT 734 H (4-34) U/L Alkaline Phosphatase 266 H (38-126) U/L Total Protein 5.6 L (6.3-8.2) g/dL Albumin 3.0 L (3.5-5.0) g/dL Assessment and Plan (1) Right upper quadrant abdominal pain Current Visit: Yes Status: Acute Code(s): R10.11 - RIGHT UPPER QUADRANT PAIN SNOMED Code(s): 561031645 (2) Acute blood loss anemia Current Visit: No Status: Acute Code(s): D62 - ACUTE POSTHEMORRHAGIC ANEMIA SNOMED Code(s): 543927054 (3) Status post D&C Current Visit: No Status: Acute Code(s): Z98.890 - OTHER SPECIFIED POSTPROCEDURAL STATES SNOMED Code(s): 451751543 Plan: 1. I did speak with Dr Magana and we agree this is not likely related to the D&C considering how long ago it was. She is no longer having any vaginal bleeding and is not tender over her uterus. This is very unlikely to be REGIONAL REHABILITATION DIRECTOR related. Pt does have an appt with me already scheduled next week.
[2021-08-05] MEDS: PIPERACILLIN-TAZOBACTAM 3.375 GM in SODIUM CHLORIDE 0.9% 100 ML IVPB SCH ×2 (03:51→13:10)
[2021-08-05] MEDS: MORPHINE SULFATE 4 MG/ML SYRINGE IV PRN ×2 (03:52→08:13)
[2021-08-05] MEDS: SODIUM CHLORIDE 0.9% 1,000 ML IV SCH ×2 (04:18→15:59)
[2021-08-05 06:11] LABS: Ferritin 16.8 ng/mL (10.0-291.0)
--- NOTE | 2021-08-05 08:28 | P.HPIM ---
History of Present Illness H&P Date: 08/04/21 Chief Complaint: abdominal pain Aida Granados is a 41 yo F who presented to the ED complaining of fever, chills, nausea and R sided abdominal pain worsening over the past few days. She notes she had a miscarriage approx 2.5 weeks ago which was complicated by hemorrhage and subsequently underwent D&C. She did well after this procedure and was discharged home. She denies any change in her diet, denies alcohol use. On presentation her vitals were stable, Hgb 7.9, WBC 3.4, AST/ALT 700s. Review of Systems All systems: negative Constitutional: Reports malaise, Reports weakness, Denies chills, Denies fever Eyes: denies blurred vision, denies pain Ears, nose, mouth and throat: Denies headache, Denies sore throat Cardiovascular: Denies chest pain, Denies shortness of breath Respiratory: Denies cough Gastrointestinal: Denies abdominal pain, Denies diarrhea, Denies nausea, Denies vomiting Genitourinary: Denies dysuria, Denies hematuria Musculoskeletal: Denies myalgias Integumentary: Denies pruritus, Denies rash Neurological: Denies numbness, Denies weakness Psychiatric: Denies anxiety, Denies depression Endocrine: Denies fatigue, Denies weight change Past Medical History Past Medical History: GERD/Reflux, Hyperlipidemia, Osteoarthritis (OA) Additional Past Medical History / Comment(s): heart murmur, hx migraines(motrin 800mg dose) and seizures(from tramadol), hx gestational diabetes-9 yrs ago, History of Any Multi-Drug Resistant Organisms: None Reported Past Surgical History: Section, Cholecystectomy, Orthopedic Surgery Additional Past Surgical History / Comment(s): ORIF left tib/fib Past Anesthesia/Blood Transfusion Reactions: Motion Sickness Past Psychological History: No Psychological Hx Reported Smoking Status: Never smoker Past Alcohol Use History: None Reported Past Drug Use History: None Reported - Past Family History Mother Family Medical History: No Reported History Medications and Allergies Home Medications Medication Instructions Recorded Confirmed Type No Known Home Medications 08/04/21 08/04/21 History Allergies Allergy/AdvReac Type Severity Reaction Status Date / Time ibuprofen AdvReac elevates Verified 08/04/21 06:39 creatinine tramadol AdvReac seizures Verified 08/04/21 06:39 Physical Exam Vitals: Vital Signs Temp Pulse Pulse Resp BP BP BP 08/04/21 20:52 98.4 F 79 17 104/68 08/04/21 18:59 98.2 F 74 14 93/55 08/04/21 16:15 98.7 F 76 16 112/63 08/04/21 10:59 98.3 F 08/04/21 10:57 71 18 94/57 08/04/21 09:05 74 16 95/55 08/04/21 08:26 73 16 98/56 08/04/21 06:42 98.8 F 83 18 97/50 08/04/21 04:53 79 18 101/51 08/04/21 03:41 98.8 F 75 18 105/62 Pulse Ox 08/04/21 20:52 99 08/04/21 18:59 99 08/04/21 16:15 100 08/04/21 10:59 08/04/21 10:57 98 08/04/21 09:05 08/04/21 08:26 100 08/04/21 06:42 97 08/04/21 04:53 100 08/04/21 03:41 100 Intake and Output 08/04/21 08/04/21 08/05/21 14:59 22:59 06:59 Other: # Voids 1 Weight 67.585 kg General: well nourished, well developed, NAD. Vitals reviewed Eyes: PERRL, EOMI, conjunctiva normal HENT: normocephalic, mucus membranes moist Neck: supple, no JVD Lungs: normal respiratory effort, no wheezes or rales CV: Regular rate and rhythm, no murmur. Peripheral pulses 2+ Abdomen: soft, nondistended, no organomegaly. Tenderness throughout Lymph: no cervical or axillary LAD Skin: warm and dry. Neuro: A&Ox3, normal mood and affect Results CBC & Chem 7: 08/04/21 03:52 08/04/21 03:52 Labs: Abnormal Lab Results - Last 24 Hours (Table) 08/04/21 08/04/21 08/04/21 Range/Units 03:52 03:52 03:52 WBC 3.4 L (3.8-10.6) k/uL RBC 2.82 L (3.80-5.40) m/uL Hgb 7.9 L (11.4-16.0) gm/dL Hct 25.8 L (34.0-46.0) % MCHC 30.7 L (31.0-37.0) g/dL Lymphocytes # 0.6 L (1.0-4.8) k/uL APTT 21.2 L (22.0-30.0) sec Sodium 135 L (137-145) mmol/L Chloride 111 H (98-107) mmol/L Carbon Dioxide 21 L (22-30) mmol/L BUN 6 L (7-17) mg/dL Calcium 6.9 L (8.4-10.2) mg/dL Total Bilirubin 1.6 H (0.2-1.3) mg/dL AST 740 H (14-36) U/L ALT 734 H (4-34) U/L Alkaline Phosphatase 266 H (38-126) U/L Total Protein 5.6 L (6.3-8.2) g/dL Albumin 3.0 L (3.5-5.0) g/dL Thrombosis Risk Factor Assmnt - Choose All That Apply Each Factor Represents 1 point: Age 41-60 years, History of:, or Other Risk Factors: No Thrombosis Risk Factor Assessment Total Risk Factor Score: 3 Thrombosis Risk Factor Assessment Level: Moderate Risk Assessment and Plan Plan: 1. Acute colitis, concern for appendicitis. Start zosyn. Consult to surgery. NPO. IVF 2. Recent D&C, pelvic pain. [employer] consult for further evaluation 3. Elevated LFTs. Suspect secondary to infectious colitis. GI consulted. Trend labs
[2021-08-05 08:45] VITALS: RESP 18; TEMP 98.2
[2021-08-05 09:01] LABS: HCT 23.5 % (37.2-46.3); HGB 7.1 g/dL (12.0-15.0); MCH 27.6 pg (27.0-32.0); MCHC 30.2 g/dL (32.0-37.0); MCV 91.4 fL (80.0-97.0); Mean Platelet Volume 10.5 fL (9.5-12.2); NRBC Per 100 WBC 0 /100 WBCS (0.0-0.0); Platelet Count 294 X 10*3/uL (140-440); RBC 2.57 X 10*6/uL (4.10-5.20); RDW 15.8 % (11.5-14.5)
[2021-08-05 09:07] LABS: Albumin 3.1 g/dL (3.8-4.9); Albumin/Globulin Ratio 1.63 (1.60-3.17); Anion Gap 8.6 mmol/L (10.00-18.00); BUN/Creat Ratio 11.57 Ratio (12.00-20.00); Blood Urea Nitrogen 8.1 mg/dL (9.0-27.0); Carbon Dioxide 18.4 mmol/L (20.0-27.5); Globulin 1.9 g/dL (1.6-3.3); Magnesium 2.1 mg/dL (1.5-2.4); Non-African American GFR(CKD) 106.1 (60.0-200.0); Phosphorus 2.7 mg/dL (2.4-5.1); Potassium 4.4 mmol/L (3.5-5.5); Total Bilirubin 0.3 mg/dL (0.30-1.20)
[2021-08-05 13:10] LABS: Basophils # (A) 0.01 X 10*3/uL (0.00-0.10); Basophils % (A) 0.2 %; Eosinophils # (A) 0.15 X 10*3/uL (0.04-0.35); Eosinophils % (A) 3.7 %; Immature Grans, Automated 0.5 %; Lymphocytes # (A) 1.34 X 10*3/uL (0.90-5.00); Lymphocytes % (A) 32.7 %; Monocytes # (A) 0.35 X 10*3/uL (0.20-1.00); Monocytes % (A) 8.5 %; Neutrophils # (A) 2.23 X 10*3/uL (1.80-7.70); Neutrophils % (A) 54.4 %
--- NOTE | 2021-08-05 13:31 | P.PN ---
Subjective Progress Note Date: 08/05/21 Patient is feeling better today, denies any abdominal pain. She is hungry at asking for food. She is now eating and tolerating lunch. Objective - Vital Signs Vital signs: Vital Signs Temp 98.2 F 08/05/21 07:00 Pulse 64 08/05/21 07:00 Resp 18 08/05/21 07:00 BP 121/72 08/05/21 07:00 Pulse Ox 100 08/05/21 07:00 Intake & Output 08/04/21 08/05/21 08/05/21 18:59 06:59 18:59 Weight 67.585 kg Other: # Voids 2 - Constitutional General appearance: Present: cooperative - Cardiovascular Rhythm: regular - Gastrointestinal Gastrointestinal Comment(s): S/NT/ND - Psychiatric Psychiatric: Present: A&O x's 3 - Labs CBC & Chem 7: 08/05/21 06:41 08/05/21 06:35 Labs: Abnormal Lab Results - Last 24 Hours (Table) 08/05/21 08/05/21 Range/Units 06:35 06:41 WBC 4.10 L (4.50-10.00) X 10*3/uL RBC 2.57 L (4.10-5.20) X 10*6/uL Hgb 7.1 L (12.0-15.0) g/dL Hct 23.5 L (37.2-46.3) % MCHC 30.2 L (32.0-37.0) g/dL RDW 15.8 H (11.5-14.5) % Chloride 114 H (96-109) mmol/L Carbon Dioxide 18.4 L (20.0-27.5) mmol/L Anion Gap 8.60 L (10.00-18.00) mmol/L BUN 8.1 L (9.0-27.0) mg/dL BUN/Creatinine Ratio 11.57 L (12.00-20.00) Ratio Calcium 8.0 L (8.7-10.3) mg/dL AST 139 H (13-35) U/L ALT 400 H (8-44) U/L Alkaline Phosphatase 253 H (41-126) U/L Total Protein 5.0 L (6.2-8.2) g/dL Albumin 3.1 L (3.8-4.9) g/dL Assessment and Plan Assessment: Rule out appendicitis Elevated liver enzymes Anemia Plan: Patient is feeling better today, her liver enzymes are improved. Bili is now normal. Patient likely had a primary CBD stone which passed, she is now feeling much better. She will be following up with GI. She is not having any significant pain or physical exam findings to support appendicitis. At this time I recommend continuing antibiotics for 7 days and following up with me in my clinic on Monday. I discussed with her that if she feels worsening abdominal pain, N/V, fevers, to report directly to ER. She understood this. Patient has no signs of active bleeding with no vaginal bleeding or GI bleeding however her HgB did drop to 7.1 again today. Prior to DC she should have repeat H and H to confirm that HgB is not continuing to trend down.
--- NOTE | 2021-08-05 14:33 | P.PN ---
Subjective Progress Note Date: 08/05/21 Principal diagnosis: Abdominal pain This is a 41-year-old female who presented to the emergency department at [facility] with complaints of right upper quadrant abdominal pain that radiated to her flank. her she had a CT of the abdomen at the [facility] that was concerning for appendicitis. She does also have a history of a recent spontaneous followed with a D&C. Patient was anemic at that time and discharged home. Also patient had significantly elevated LFTs on admission. There was concern for choledochal lithiasis. History she underwent an MRCP that showed no filling defect. There is minimal ascites and findings suggestive of hepatic state ptosis. No evident choledochal lithiasis. Splenomegaly is borderline. Left ovarian cyst not seen on pelvic ultrasound. She was seen by gynecology did not leave any of the abdominal pain was related to previous spontaneous or D&C. Gen. surgery is following closely. Patient has been afebrile. States pain has improved. Denies any nausea or vomiting. Repeat total bilirubin 0.3 AST 139 AST 400 alkaline phosphatase 253. Iron studies consistent with mild iron deficiency anemia Objective - Vital Signs Vital signs: Vital Signs Temp 98.2 F 08/05/21 07:00 Pulse 64 08/05/21 07:00 Resp 18 08/05/21 07:00 BP 121/72 08/05/21 07:00 Pulse Ox 100 08/05/21 07:00 Intake & Output 08/04/21 08/05/21 08/05/21 18:59 06:59 18:59 Weight 67.585 kg Other: # Voids 2 - Exam General appearance: The patient is alert, oriented, appears in no acute distress. HET: Head is normocephalic and atraumatic. Conjunctiva pink. Sclera anicteric. Neck: Supple without lymphadenopathy. Abdomen: Soft, mild right upper and lower quadrant tenderness,, nondistended with bowel sounds. No guarding or rigidity. Extremities: Normal skin color and turgor. No pedal edema Skin: No rashes, no jaundice Neurological: No focal deficits. Alert and oriented -3. - Labs CBC & Chem 7: 08/05/21 06:41 08/05/21 06:35 Labs: Abnormal Lab Results - Last 24 Hours (Table) 08/05/21 08/05/21 Range/Units 06:35 06:41 WBC 4.10 L (4.50-10.00) X 10*3/uL RBC 2.57 L (4.10-5.20) X 10*6/uL Hgb 7.1 L (12.0-15.0) g/dL Hct 23.5 L (37.2-46.3) % MCHC 30.2 L (32.0-37.0) g/dL RDW 15.8 H (11.5-14.5) % Chloride 114 H (96-109) mmol/L Carbon Dioxide 18.4 L (20.0-27.5) mmol/L Anion Gap 8.60 L (10.00-18.00) mmol/L BUN 8.1 L (9.0-27.0) mg/dL BUN/Creatinine Ratio 11.57 L (12.00-20.00) Ratio Calcium 8.0 L (8.7-10.3) mg/dL AST 139 H (13-35) U/L ALT 400 H (8-44) U/L Alkaline Phosphatase 253 H (41-126) U/L Total Protein 5.0 L (6.2-8.2) g/dL Albumin 3.1 L (3.8-4.9) g/dL Assessment and Plan (1) Transaminitis Narrative/Plan: 41-year-old female who initially presented to [facility] with complaints of right upper quadrant abdominal pain with fever of 102 at home. She was seen and evaluated there, had a CT of the abdomen and pelvis that showed no CBD dilation, normal liver normal pancreas, appendix dilated with fluid with mild fat stranding. As part of her workup at [facility] she was noted have elevated liver enzymes total bilirubin 1.4 AST thousand 84 and 2059 alk phos 360. She had an ultrasound that showed no CBD dilation and no evidence of stones. She was transferred to the emergency department at [facility] due to recent D&C and availability of gynecology. The patient denies any recent medication changes, no recent antibiotic use, no history of hepatitis, and no history of alcohol abuse. She does state that she had her gallbladder removed approximately 5 years ago for nonfunctioning, no stones. At that time she did have some elevation in her LFTs for which she was seen by gastroenterology and determine likely fatty liver. Repeat labs LFTs are improving. Pain is improving. Will order MRCP to rule out CBD stone/obstruction. MRCP shows no filling defect no concern for choledochal lithiasis. Likely unde rlying hepatic steatosis. LFTs improving. Current Visit: Yes Status: Acute Code(s): R74.01 - ELEVATION OF LEVELS OF LIVER TRANSAMINASE LEVELS SNOMED Code(s): 704756580 (2) Right upper quadrant abdominal pain Current Visit: Yes Status: Acute Code(s): R10.11 - RIGHT UPPER QUADRANT PAIN SNOMED Code(s): 021228807 (3) Anemia Current Visit: Yes Status: Acute Code(s): D64.9 - ANEMIA, UNSPECIFIED SNOMED Code(s): 139386029 Plan: 1. Continue symptomatic and supportive care 2. Advance to low-fat diet 3. Continue with recommendations from the general surgery 4. No plans on ERCP, no evidence of choledocholithiasis Patient is cleared from gastroenterology for discharge. Will need outpatient labs and follow-up with gastroenterology one week. Dr. Shanda Neumann I agree with the dictator's note, documented as a scribe by Saray Bishop.
--- NOTE | 2021-08-05 15:36 | P.PN ---
Subjective Progress Note Date: 08/05/21 Aida Granados is a 41 yo F who presented to the ED complaining of fever, chills, nausea and R sided abdominal pain worsening over the past few days. She notes she had a miscarriage approx 2.5 weeks ago which was complicated by hemorrhage and subsequently underwent D&C. She did well after this procedure and was discharged home. She denies any change in her diet, denies alcohol use. On presentation her vitals were stable, Hgb 7.9, WBC 3.4, AST/ALT 700s. 08/05/2021 maintained on Zosyn, afebrile, WBC 4.1. completed MRCP reporting minimal ascites, hepatic steatosis ,no evident filling defect to suggest c holedocholithiasis, tapering distally of the common bile duct, splenomegaly borderline, left ovarian cyst. Reports pain improving, has shifted to mid epigastric radiating down to the umbilical and continues on right flank. Hemoglobin decreased to 7.1. No signs or symptoms of bleeding, LFTs improving. Reports positive nausea, heartburn during the night-resolved. Denies chest pain, palpitations or shortness of breath. Objective - Vital Signs Vital signs: Vital Signs Temp 98.2 F 08/05/21 07:00 Pulse 64 08/05/21 07:00 Resp 18 08/05/21 07:00 BP 121/72 08/05/21 07:00 Pulse Ox 100 08/05/21 07:00 Intake & Output 08/04/21 08/05/21 08/05/21 18:59 06:59 18:59 Weight 67.585 kg Other: # Voids 2 - Exam General: Sitting up in bed, NAD. Vitals reviewed Eyes: PERRL, EOMI, conjunctiva normal HENT: normocephalic, mucus membranes moist Neck: supple, no JVD Lungs: normal respiratory effort, no wheezes or rales CV: Regular rate and rhythm, no murmur. Peripheral pulses 2+ Abdomen: soft, nondistended, no organomegaly. Mid epigastric, umbilical and right flank tenderness. Positive bowel sounds Skin: warm and dry. Neuro: A&Ox3, normal mood and affect - Labs CBC & Chem 7: 08/05/21 06:41 08/05/21 06:35 Labs: Abnormal Lab Results - Last 24 Hours (Table) 08/05/21 08/05/21 Range/Units 06:35 06:41 WBC 4.10 L (4.50-10.00) X 10*3/uL RBC 2.57 L (4.10-5.20) X 10*6/uL Hgb 7.1 L (12.0-15.0) g/dL Hct 23.5 L (37.2-46.3) % MCHC 30.2 L (32.0-37.0) g/dL RDW 15.8 H (11.5-14.5) % Chloride 114 H (96-109) mmol/L Carbon Dioxide 18.4 L (20.0-27.5) mmol/L Anion Gap 8.60 L (10.00-18.00) mmol/L BUN 8.1 L (9.0-27.0) mg/dL BUN/Creatinine Ratio 11.57 L (12.00-20.00) Ratio Calcium 8.0 L (8.7-10.3) mg/dL AST 139 H (13-35) U/L ALT 400 H (8-44) U/L Alkaline Phosphatase 253 H (41-126) U/L Total Protein 5.0 L (6.2-8.2) g/dL Albumin 3.1 L (3.8-4.9) g/dL Assessment and Plan Assessment: Acute colitis, concern for appendicitis, Gen. 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 Maintain IV antibiotics. Diet advancement as per GI/surgery. Close monitoring of hemoglobin, LFTs with repeat labs ordered for a.m. Will transfuse if hemoglobin drops further. The impression and plan of care has been dictated as directed. : I performed a history and examination of this patient, discussed the same with the dictator. I agree with the dictator's note ,documented as a scribe. Any additional findings or plans will be noted.
[2021-08-05 15:57] VITALS: BP 115/70; PULSE 73
[2021-08-05 16:23] LABS: HCT 25.8 % (34.0-46.0); HGB 8.1 gm/dL (11.4-16.0); Hypochromasia Marked; MCH 28.8 pg (25.0-35.0); MCHC 31.3 g/dL (31.0-37.0); MCV 92.1 fL (80.0-100.0); Mean Platelet Volume 8.3; Platelet Count 318 k/uL (150-450); Poikilocytosis Moderate; RDW 15.2 % (11.5-15.5); WBC 4.5 k/uL (3.8-10.6)
[2021-08-05 16:34] LABS: African American GFR (CKD) >90 (>60 ml/min/1.73 sqM); Anion Gap 6 mmol/L; Blood Urea Nitrogen 11 mg/dL (7-17); Carbon Dioxide 22 mmol/L (22-30); Chloride 112 mmol/L (98-107); Glucose 136 mg/dL (74-99); Non-African American GFR(CKD) >90 (>60 ml/min/1.73 sqM); Potassium 4.1 mmol/L (3.5-5.1); Sodium 140 mmol/L (137-145)
== END 2021-08-05 18:45 | disposition home or self-care (01) ==
LOC: EC 03:32 → 6NMEDSUR 03:46
PROVIDERS: ADMIT Family Medicine; ATTEND Family Medicine
DX: K52.9 Noninfective gastroenteritis and colitis, unspecified (principal); R10.2 Pelvic and perineal pain; R79.89 Other specified abnormal findings of blood chemistry; R11.2 Nausea with vomiting, unspecified; R50.9 Fever, unspecified; R74.01 Elevation of levels of liver transaminase levels; R74.8 Abnormal levels of other serum enzymes; D64.9 Anemia, unspecified; K21.9 Gastro-esophageal reflux disease without esophagitis; E78.5 Hyperlipidemia, unspecified; M19.90 Unspecified osteoarthritis, unspecified site; G43.909 Migraine, unspecified, not intractable, without status migrainosus; R56.9 Unspecified convulsions; R01.1 Cardiac murmur, unspecified; R16.1 Splenomegaly, not elsewhere classified; Z86.32 Personal history of gestational diabetes; Z90.49 Acquired absence of other specified parts of digestive tract; Z88.8 Allergy status to other drugs, medicaments and biological substances; Z71.9 Counseling, unspecified
CPT/HCPCS: 96376 ×3; 96361 ×3; 96366 ×2; 96375 ×2; 96365; 96367; 99285; 80053 ×2; 80048; 80074; 82728; 82140; 82150; 83540; 83550; 83605; 83690; 83735; 84100; 85025 ×2; 85027; 85610; 85730; 80143; 93975; 76856; 76705; 74181; G0378 ×2; J2543 ×2; J2270 ×2; J2405; J0295